=== PATIENT | female | born 2005 | race Caucasian/White ===

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

== ENCOUNTER 2023-03-06 15:14 | Inpatient (IN) | payer BC, MEDICAID, OTHER ==
[2023-03-06] MEDS ORDERED: LORazepam 0.5 MG TAB PO STA (16:23)
--- NOTE | 2023-03-06 17:08 | ED ---
General Adult HPI - General Source: patient, police, RN notes reviewed, old records reviewed Mode of arrival: ambulatory Limitations: no limitations <Mario Parra - Last Filed: 03/06/23 17:05> <Chalino Zhang - Last Filed: 03/06/23 18:29> - General Chief complaint: Psychiatric Symptoms Stated complaint: mental health Time Seen by Provider: 03/06/23 15:24 - History of Present Illness Initial comments: Patient is a 17-year-old female who presents emergency department after being petitioned for evaluation by psychiatry. He is endorsing suicidal ideations. Does have a history of a recent attempt with overdosing on Zoloft. Denies any homicidal ideations, attempts complaints. Denies any visual or auditory hallucinations. He has no other acute complaints at this time. Presents for psychiatric evaluation. States she does have the prior history of attempt. (Mraio Parra) - Related Data Home Medications Medication Instructions Recorded Confirmed Amoxicillin 500 mg PO TID 03/06/23 03/06/23 Mirtazapine [Remeron] 7.5 mg PO HS 03/06/23 03/06/23 OXcarbazepine [Trileptal] 150 mg PO TID 03/06/23 03/06/23 Allergies Allergy/AdvReac Type Severity Reaction Status Date / Time No Known Allergies Allergy Verified 03/06/23 16:09 Review of Systems ROS Other: All systems not noted in ROS Statement are negative. <Mario Parra - Last Filed: 03/06/23 17:05> ROS Other: All systems not noted in ROS Statement are negative. <Chalino Zhang - Last Filed: 03/06/23 18:29> ROS Statement: Those systems with pertinent positive or pertinent negative responses have been documented in the HPI. Review of Systems: CONST: Denies fever EYES: Denies blurry vision ENT: Denies nasal congestion C/V: Denies Chest pain RESP: Denies shortness of breath GI: Denies abdominal pain : Denies dysuria SKIN: Denies rash. MSK: Denies joint pain. NEURO: Denies headache PSYCH: Denies homicidal ideations/plans/attempts. Denies visual or auditory hallucinations. She endorses suicidal ideation. Denies attempt or plan. (Mario Parra) Past Medical History Past Medical History: No Reported History History of Any Multi-Drug Resistant Organisms: None Reported Past Surgical History: No Surgical Hx Reported Past Psychological History: No Psychological Hx Reported Smoking Status: Never smoker Past Alcohol Use History: None Reported Past Drug Use History: Marijuana <Mario Parra - Last Filed: 03/06/23 17:05> General Exam Limitations: no limitations <Mario Parra - Last Filed: 03/06/23 17:05> General appearance: alert, in no apparent distress Head exam: Present: atraumatic, normocephalic, normal inspection Eye exam: Present: normal appearance, PERRL, EOMI. Absent: scleral icterus, conjunctival injection, periorbital swelling ENT exam: Present: normal exam, mucous membranes moist Neck exam: Present: normal inspection. Absent: tenderness, meningismus, lymphadenopathy Respiratory exam: Present: normal lung sounds bilaterally. Absent: respiratory distress, wheezes, rales, rhonchi, stridor Cardiovascular Exam: Present: regular rate, normal rhythm, normal heart sounds. Absent: systolic murmur, diastolic murmur, rubs, gallop, clicks GI/Abdominal exam: Present: soft, normal bowel sounds. Absent: distended, tenderness, guarding, rebound, rigid Extremities exam: Present: normal inspection, full ROM, normal capillary refill. Absent: tenderness, pedal edema, joint swelling, calf tenderness Back exam: Present: normal inspection Neurological exam: Present: alert, oriented X3, CN II-XII intact Psychiatric exam: Present: normal affect, normal mood Skin exam: Present: warm, dry, intact, normal color. Absent: rash <Chalino Zhang - Last Filed: 03/06/23 18:29> - General Exam Comments Initial Comments: General: Appears in no acute distress. HEAD: Normal with no signs of head trauma. EYES: EOMI ENT: Hearing grossly intact, normal oropharynx. RESPIRATORY: Clear breath sounds bilaterally. No wheezes, rales, or rhonchi. C/V: Regular rate and rhythm. S1 and S2 auscultated, no edema, peripheral pulses 2+ and intact throughout ABD: Abd is soft, nontender, nondistended EXT: Normal range of motion, no obvious deformity SKIN: No rashes or lesions observed on exposed skin. NEURO: Alert and oriented 4. (Mario Parra) Course <Chalino Zhang - Last Filed: 03/06/23 18:29> Vital Signs 03/06/23 15:15 Temperature 99.5 F Pulse Rate 66 Respiratory 19 Rate Blood Pressure 135/70 O2 Sat by Pulse 100 Oximetry - Reevaluation(s) Reevaluation #1: 03/06/23 18:29 Medical record is reviewed (Chalino Zhang) Reevaluation #2: 03/06/23 18:29 Medical clear for psychiatric evaluation (Chalino Zhang) Medical Decision Making <Mario Parra - Last Filed: 03/06/23 17:05> <Chalino Zhang - Last Filed: 03/06/23 18:29> - Medical Decision Making Was pt. sent in by a medical professional or institution (, PA, DIVORCE LAWYER, urgent care, hospital, or shelter...) When possible be specific @ -No Did you speak to anyone other than the patient for history (EMS, parent, family, police, friend...)? What history was obtained from this source @ -No Did you review nursing and triage notes (agree or disagree)? Why? @ -I reviewed and agree with nursing and triage notes Were old charts reviewed (outside hosp., previous admission, EMS record, old EKG, old radiological studies, urgent care reports/EKG's, shelter records)? Report findings @ -No old charts were reviewed Differential Diagnosis (chest pain, altered mental status, abdominal pain women, abdominal pain men, vaginal bleeding, weakness, fever, dyspnea, syncope, headache, dizziness, GI bleed, back pain, seizure, CVA, palpatations, mental health, musculoskeletal)? @ -Differential Mental Health Depression, anxiety, bipolar, psychosis, schizophrenia, borderline personality, situational depression, adjustment disorder, behavioral disorder, brain tumor, malingering, substance abuse, encephalopathy, medication reaction, dementia, hypothyroidism, degenerative neurologic disorder, lupus.... This is not meant to be all-inclusive list EKG interpreted by me (3pts min.). @ -None done X-rays interpreted by me (1pt min.). @ -None done CT interpreted by me (1pt min.). @ -None done U/S interpreted by me (1pt. min.). @ -None done What testing was considered but not performed or refused? (CT, X-rays, U/S, labs )? Why? @ -None What meds were considered but not given or refused? Why? @ -None Did you discuss the management of the patient with other professionals (professionals i.e. , PA, DIVORCE LAWYER, lab, RT, psych nurse, social service worker, road manager, teacher, immigration services officer, high risk case manager)? Give summary @ -EPS notified of psychiatric consult. Was smoking cessation discussed for >3mins.? @ -No Was critical care preformed (if so, how long)? @ -No Were there social determinants of health that impacted care today? How? (Homelessness, low income, unemployed, alcoholism, drug addiction, transportation, low edu. Level, literacy, decrease access to med. care, [place] [facility], rehab)? @ -No Was there de-escalation of care discussed even if they declined (Discuss DNR or withdrawal of care, Hospice)? DNR status @ -No What co-morbidities impacted this encounter? (DM, HTN, Smoking, COPD, CAD, Cancer, CVA, ARF, Chemo, Hep., AIDS, mental health diagnosis, sleep apnea, morbid obesity)? @ -None Was patient admitted / discharged? Hospital course, mention meds given and route, prescriptions, significant lab abnormalities, going to OR and other pertinent info. @ -Based on the patient's presentation and physical exam, I'm concerned for psychiatric illness. BAT is 0. Patient placed in agreement scrubs. Sitter ordered. Suicide precautions were reviewed. UDS is pending. Patient given a dose of Ativan for anxiety. Vital signs within acceptable limits. At this time, patient is medically cleared for evaluation by psychiatry. Disposition is pending psychiatric evaluation. EPS is notified of the consult. Undiagnosed new problem with uncertain prognosis? @ -No Drug Therapy requiring intensive monitoring for toxicity (Heparin, Nitro, Insulin, Cardizem)? @ -No Were any procedures done? @ -No Diagnosis/symptom? @ -Encounter for psychiatric illness, suicidal ideation Acute, or Chronic, or Acute on Chronic? @ -Acute Uncomplicated (without systemic symptoms) or Complicated (systemic symptoms)? @ -Complicated Side effects of treatment? @ -No Exacerbation, Progression, or Severe Exacerbation? @ -No Poses a threat to life or bodily function? How? (Chest pain, USA, MS, pneumonia, PE, COPD, DKA, ARF, appy, cholecystitis, CVA, Diverticulitis, Homicidal, Suicidal, threat to staff... and all critical care pts) @ -Yes (Mario Parra) 17 female who was seen and evaluated psychiatry here in the ER. Patient be admitted for psychiatric evaluation and treatment, transferred for inpatient psychiatric (Chalino Zhang) - Lab Data Lab Results 03/06/23 Range/Units 16:57 Urine Opiates Screen Not Detected (NotDetected) Ur Oxycodone Screen Not Detected (NotDetected) Urine Methadone Screen Not Detected (NotDetected) Ur Propoxyphene Screen Not Detected (NotDetected) Ur Barbiturates Screen Not Detected (NotDetected) U Tricyclic Antidepress Not Detected (NotDetected) Ur Phencyclidine Scrn Not Detected (NotDetected) Ur Amphetamines Screen Not Detected (NotDetected) U Methamphetamines Scrn Not Detected (NotDetected) U Benzodiazepines Scrn Detected H (NotDetected) Urine Cocaine Screen Not Detected (NotDetected) U Marijuana (THC) Screen Not Detected (NotDetected) Disposition <Mario Parra - Last Filed: 03/06/23 17:05> Is patient prescribed a controlled substance at d/c from ED?: No <Chalino Zhang - Last Filed: 03/06/23 18:29> Clinical Impression: Suicidal ideation, Encounter for psychiatric assessment, Acute anxiety, Depression Disposition: TRANSFER TO PSYCH HOSP/UNIT Condition: Fair Referrals: Nikole Sena [Primary Care Provider] - 1-2 days
[2023-03-06 17:20] LABS: Amphetamine Screen,Urine Not Detected (NotDetected); Barbiturate Screen,Urine Not Detected (NotDetected); Benzodiazepines Screen,Urine Detected (NotDetected); Cocaine Screen,Urine Not Detected (NotDetected); Methadone Screen, Urine Not Detected (NotDetected); Opiate Screen,Urine Not Detected (NotDetected); Phencyclidine Screen,Urine Not Detected (NotDetected); Tricyclic Antidepressant,Urine Not Detected (NotDetected); Urn Cannabinoid Scrn Not Detected (NotDetected)
[2023-03-06 17:21] LABS: Oxycodone Screen, Urine Not Detected (NotDetected)
[2023-03-06] MEDS ORDERED: LORazepam 1 MG TAB PO PRN (22:37)
[2023-03-06] MEDS ORDERED: MAG HYDROX/AL HYDROX/SIMETH 30 ML CUP PO PRN (22:37)
[2023-03-06] MEDS ORDERED: haloperidoL 5 MG TAB PO PRN (22:37)
[2023-03-06] MEDS ORDERED: IBUPROFEN 600 MG TAB PO PRN (22:37)
[2023-03-06] MEDS ORDERED: HALOPERIDOL LACTATE 5 MG/ML 1 ML VIAL IM PRN (22:37)
[2023-03-06] MEDS ORDERED: ACETAMINOPHEN TAB 325 MG TAB PO PRN (22:37)
[2023-03-06] MEDS ORDERED: MAGNESIUM HYDROXIDE 2,400 MG/30 ML CUP PO PRN (22:37)
[2023-03-06] MEDS ORDERED: LORazepam 2 MG/ML INJ IM PRN (22:37)
[2023-03-06] MEDS: MIRTAZAPINE 15 MG TAB PO SCH (22:54)
--- NOTE | 2023-03-07 04:02 | P.CONS ---
History of Present Illness - Reason for Consult Consult date: 03/07/23 - History of Present Illness The patient is a 17-year-old female with no known PMH who had presented to the emergency room with complaints of depression and suicidal ideation. The patient had initially been petitioned by her psychiatrist for suicidal ideation. Patient was admitted to the mental health unit where she was seen and evaluated with the mental health unit RN Karissa. Patient reports that she has been going th rough a lot recently and her personal life. She denied any physical complaints at the time of interview. She denied experiencing chest discomfort, shortness of breath, fever, chills, cough, nausea, vomiting, abdominal pain, diarrhea. She denies tobacco or alcohol use. Reports recreational marijuana use. Review of systems: Pertinent positives and negatives as discussed in HPI, a complete review of systems was performed and all other systems are negative. Physical examination: General: non toxic, no distress, appears at stated age, normal weight Derm: no unusual rashes/lesions, no unusual ecchymoses, warm, dry Head: atraumatic, normocephalic, symmetric Eyes: EOMI, no lid lag, anicteric sclera ENT: Nose and ears atraumatic, no thrush, no pharyngeal erythema Neck: trachea midline, supple Mouth: no lip lesion, mucus membranes moist Cardiovascular: S1S2 reg, no murmur, no edema Lungs: CTA bilateral, no rhonchi, no rales , no accessory muscle use Abdominal: soft, nontender to palpation, no guarding Ext: no gross muscle atrophy, no contractures, Neuro: No gross focal neuro deficits noted Psych: Alert, oriented, appropriate affect Assessment: Marijuana abuse Depression and suicidal ideation Imaging: None performed Data Review: Kimble virus PCR negative with urine toxicology positive for benzodiazepines. Remaining laboratory evaluation is pending Plan: Advised on the importance of cessation of marijuana use Defer management of depression to primary psychiatry service Thank you for allowing us to participate in the care of this patient. We will follow peripherally. Do not hesitate to contact us with questions. Someone can be reached from the [facility] hospitalist group at all hours of the day at [phone]. Past Medical History Past Medical History: No Reported History History of Any Multi-Drug Resistant Organisms: None Reported Past Surgical History: No Surgical Hx Reported Past Anesthesia/Blood Transfusion Reactions: No Reported Reaction Past Psychological History: No Psychological Hx Reported Smoking Status: Never smoker Past Alcohol Use History: None Reported Past Drug Use History: Marijuana - Past Family History Mother Family Medical History: Dementia Medications and Allergies Home Medications Medication Instructions Recorded Confirmed Type Amoxicillin 500 mg PO TID 03/06/23 03/06/23 History Mirtazapine [Remeron] 7.5 mg PO HS 03/06/23 03/06/23 History OXcarbazepine [Trileptal] 150 mg PO TID 03/06/23 03/06/23 History Allergies Allergy/AdvReac Type Severity Reaction Status Date / Time No Known Allergies Allergy Verified 03/06/23 16:09 Physical Exam Vitals: Vital Signs Temp Pulse Pulse Resp BP BP Pulse Ox 03/06/23 23:12 97.9 F 76 18 131/71 96 03/06/23 21:13 69 18 108/68 95 03/06/23 15:15 99.5 F 66 19 135/70 100 Intake and Output 03/06/23 03/06/23 03/07/23 14:59 22:59 06:59 Other: Weight 52.163 kg 52.673 kg Results Labs: Abnormal Lab Results - Last 24 Hours (Table) 03/06/23 Range/Units 16:57 U Benzodiazepines Scrn Detected H (NotDetected)
[2023-03-07 07:10] VITALS: BP 103/56; PULSE 70; RESP 16; TEMP 98.7
[2023-03-07 07:28] LABS: Basophils % (A) 0 %; Eosinophils # (A) 0.1 k/uL (0-0.7); Eosinophils % (A) 3 %; HCT 38.2 % (34.0-46.0); HGB 12.3 gm/dL (11.4-16.0); Lymphocytes # (A) 2.1 k/uL (1.0-4.8); Lymphocytes % (A) 44 %; MCH 28.6 pg (25.0-35.0); MCHC 32.3 g/dL (31.0-37.0); MCV 88.6 fL (80.0-100.0); Mean Platelet Volume 8.7; Monocytes # (A) 0.3 k/uL (0-1.0); Monocytes % (A) 5 %; Neutrophils # (A) 2.2 k/uL (1.3-7.7); Neutrophils % (A) 46 %; Platelet Count 227 k/uL (150-450); RBC 4.31 m/uL (3.80-5.40); RDW 13.2 % (11.5-15.5); WBC 4.8 k/uL (4.0-11.0)
[2023-03-07 07:45] LABS: ALT 22 U/L (4-34); AST 30 U/L (14-36); African American GFR (CKD) >90 (>60 ml/min/1.73 sqM); Albumin 3.6 g/dL (3.5-5.0); Alkaline Phosphatase 64 U/L (38-126); Anion Gap 6 mmol/L; Blood Urea Nitrogen 12 mg/dL (7-17); Calcium 8.9 mg/dL (8.4-10.2); Carbon Dioxide 23 mmol/L (22-30); Chloride 109 mmol/L (98-107); Glucose 83 mg/dL (74-99); Non-African American GFR(CKD) >90 (>60 ml/min/1.73 sqM); Potassium 4.1 mmol/L (3.5-5.1); Sodium 138 mmol/L (137-145); Total Bilirubin 0.3 mg/dL (0.2-1.3); Total Protein 6.2 g/dL (6.3-8.2)
[2023-03-07] MEDS: AMOXICILLIN 500 MG CAP PO SCH ×3 (08:20→21:04)
[2023-03-07] MEDS ORDERED: OXcarbazepine 150 MG TAB PO SCH (09:00)
[2023-03-07 09:28] LABS: Appearance,Urine Clear (Clear); Bilirubin,Urine Negative (Negative); Blood,Urine Negative (Negative); Color,Urine Light Yellow; Glucose,Urine (UA) Negative (Negative); Ketones,Urine Negative (Negative); Leukocyte Esterase,Urine Negative (Negative); Nitrite,Urine Negative (Negative); PH, Urine 5.5 (5.0-8.0); Protein,Urine Negative (Negative); Specific Gravity,Urine 1.009 (1.001-1.035); Urobilinogen,Urine <2.0 mg/dL (<2.0)
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
[2023-03-07 18:11] LABS: Chol/HDL Ratio 2.47 Ratio
[2023-03-07 18:15] LABS: LDL Cholesterol,Calculated 65.8 mg/dL (0.0-131.0); VLDL Calculation 19.22 mg/dL (5.00-40.00)
[2023-03-07] MEDS: OXcarbazepine 150 MG TAB PO SCH (21:03)
[2023-03-07] MEDS: MIRTAZAPINE 15 MG TAB PO SCH (21:03)
[2023-03-08] MEDS: OXcarbazepine 150 MG TAB PO SCH (07:50)
[2023-03-08] MEDS: AMOXICILLIN 500 MG CAP PO SCH (07:50)
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
== END 2023-03-08 13:53 | disposition home or self-care (01) | DRG 753 ==
LOC: EC 15:14 → 3MHU 22:00
PROVIDERS: ADMIT Psychiatry & Neurology Psychiatry; ATTEND Psychiatry & Neurology Psychiatry
DX: F31.81 Bipolar II disorder (principal); F12.10 Cannabis abuse, uncomplicated; F43.10 Post-traumatic stress disorder, unspecified; G47.00 Insomnia, unspecified; T43.222A Poisoning by selective serotonin reuptake inhibitors, intentional self-harm, initial encounter; Z79.899 Other long term (current) drug therapy; Z91.410 Personal history of adult physical and sexual abuse; Z71.89 Other specified counseling; Z20.822 Contact with and (suspected) exposure to COVID-19; Z28.310 Unvaccinated for COVID-19; Z28.21 Immunization not carried out because of patient refusal
CPT/HCPCS: 80053; 80061; 80306; 81003; 81025; 82075; 83036; 84443; 85025; 87635; 99285

== ENCOUNTER → 2023-04-14 | Outpatient (CLI) | payer OTHER ==
[2023-04-14 15:39] LABS: Basophils # (A) 0.05 X 10*3/uL (0.00-0.10); Basophils % (A) 1.1 %; Eosinophils # (A) 0.12 X 10*3/uL (0.04-0.35); Eosinophils % (A) 2.7 %; HCT 44.1 % (37.2-46.3); Lymphocytes # (A) 1.68 X 10*3/uL (0.90-5.00); Lymphocytes % (A) 37.3 %; MCHC 31.7 d/dL (32.0-37.0); MCV 91.5 FL (80.0-97.0); Mean Platelet Volume 10.2 FL (9.5-12.2); Monocytes # (A) 0.34 X 10*3/uL (0.20-1.00); Monocytes % (A) 7.5 %; NRBC Per 100 WBC 0 X 10*3/uL (0.00-0.01); Neutrophils # (A) 2.31 X 10*3/uL (1.80-7.70); Neutrophils % (A) 51.2 %; Platelet Count 248 X 10*3/uL (140-440); RBC 4.82 X 10*6/uL (4.10-5.20); RDW 13.1 % (11.5-14.5); WBC 4.51 X 10*3/uL (4.50-10.00)
[2023-04-14 15:53] LABS: ALT 11 U/L (8-44); AST 25 U/L (13-35); Alkaline Phosphatase 95 U/L (41-126); Blood Urea Nitrogen 13.3 mg/dL (9.0-27.0); Carbon Dioxide 25.3 mmol/L (21.6-31.8); Chloride 106 mmol/L (96-109); Globulin 2.5 d/dL (1.6-3.3); Glucose 74 mg/dL (70-110); Potassium 4.5 mmol/L (3.5-5.5); Sodium 142 mmol/L (135-145); Total Bilirubin <0.2 mg/dL (0.3-1.2); Total Protein 7.5 d/dL (6.2-8.2)
== END | disposition home or self-care (01) ==
LOC: LABWHC1 08:56
PROVIDERS: ATTEND Registered Nurse
DX: Z51.81 Encounter for therapeutic drug level monitoring (principal); Z79.899 Other long term (current) drug therapy
CPT/HCPCS: 36415; 80053; 80183; 85025

== ENCOUNTER 2023-04-25 17:14 | Emergency (ER) | payer OTHER ==
[2023-04-25] MEDS ORDERED: ONDANSETRON ODT 4 MG TAB PO STA (18:08)
--- NOTE | 2023-04-25 18:14 | ED ---
General Adult HPI - General Chief complaint: Psychiatric Symptoms Stated complaint: mental health Time Seen by Provider: 04/25/23 17:34 Source: patient Mode of arrival: ambulatory Limitations: no limitations - History of Present Illness Initial comments: This is a 17-year-old female with a past medical history including bipolar disorder presents emergency department for suicidal ideation. The patient stated that she was having suicidal thoughts over the last 2 weeks but have worsened. The patient did talk to [facility] and they did recommend for her to come to the emergency department for evaluation. The patient stated that she had a plan to take all of her pills which is similar to the previous suicidal attempt and she had in January. The patient was otherwise resting in bed comfortably. The patient denied any homicidal ideation and denied any auditory or visual hallucinations. - Related Data Home Medications Medication Instructions Recorded Confirmed Etonogestrel [Nexplanon] 68 mg SQ [id number] 04/25/23 04/25/23 Mirtazapine [Remeron] 15 mg PO HS 04/25/23 04/25/23 Previous Rx's Medication Instructions Recorded OXcarbazepine [Trileptal] 450 mg PO BID 7 Days #42 tab 03/08/23 Allergies Allergy/AdvReac Type Severity Reaction Status Date / Time No Known Allergies Allergy Verified 04/25/23 22:06 Review of Systems ROS Statement: Those systems with pertinent positive or pertinent negative responses have been documented in the HPI. ROS Other: All systems not noted in ROS Statement are negative. Past Medical History Past Medical History: No Reported History History of Any Multi-Drug Resistant Organisms: None Reported Past Surgical History: No Surgical Hx Reported Past Anesthesia/Blood Transfusion Reactions: No Reported Reaction Past Psychological History: No Psychological Hx Reported Smoking Status: Never smoker Past Alcohol Use History: None Reported Past Drug Use History: Marijuana - Past Family History Mother Family Medical History: Dementia General Exam Limitations: no limitations General appearance: alert, in no apparent distress Head exam: Present: atraumatic, normocephalic, normal inspection Eye exam: Present: normal appearance, PERRL Pupils: Present: normal accommodation ENT exam: Present: normal exam, normal oropharynx, mucous membranes moist Neck exam: Present: normal inspection, full ROM Respiratory exam: Present: normal lung sounds bilaterally Cardiovascular Exam: Present: regular rate, normal rhythm, normal heart sounds GI/Abdominal exam: Present: soft, normal bowel sounds Extremities exam: Present: normal inspection, full ROM Back exam: Present: normal inspection, full ROM Neurological exam: Present: alert, oriented X3, CN II-XII intact Psychiatric exam: Present: suicidal ideation Skin exam: Present: warm, dry Course Vital Signs 04/25/23 04/25/23 04/26/23 17:16 21:26 07:39 Temperature 98.3 F 99.0 F Pulse Rate 98 66 100 Respiratory 20 14 20 Rate Blood Pressure 132/90 112/73 108/71 O2 Sat by Pulse 96 99 97 Oximetry 04/26/23 09:31 Temperature 98.5 F Pulse Rate 100 Respiratory 16 Rate Blood Pressure 106/60 O2 Sat by Pulse 97 Oximetry Medical Decision Making - Medical Decision Making Was pt. sent in by a medical professional or institution (GARY Mai, HAND HARDENER, urgent care, hospital, or [facility]...) When possible be specific @ -No Did you speak to anyone other than the patient for history (EMS, parent, family, police, friend...)? What history was obtained from this source @ -No Did you review nursing and triage notes (agree or disagree)? Why? @ -I reviewed and agree with nursing and triage notes Were old charts reviewed (outside hosp., previous admission, EMS record, old E KG, old radiological studies, urgent care reports/EKG's, [facility] records)? Report findings @ -No old charts were reviewed Differential Diagnosis (chest pain, altered mental status, abdominal pain women, abdominal pain men, vaginal bleeding, weakness, fever, dyspnea, syncope, headache, dizziness, GI bleed, back pain, seizure, CVA, palpatations, mental hea lth)? @ -Suicidal ideation, homicide ideation, bipolar EKG interpreted by me (3pts min.). @ -None X-rays interpreted by me (1pt min.). @ -None done CT interpreted by me (1pt min.). @ -None done U/S interpreted by me (1pt. min.). @ -None done What testing was considered but not performed or refused? (CT, X-rays, U/S, labs)? Why? @ -None What meds were considered but not given or refused? Why? @ -None Did you discuss the management of the patient with other professionals (professionals i.e. Dr., PA, HAND HARDENER, lab, RT, psych nurse, social work professor, float operator, teacher, public information officer, medical case worker)? Give summary @ -Yes, EPS was contacted regarding the patient. Was smoking cessation discussed for >3mins.? @ -No Was critical care preformed (if so, how long)? @ -No Were there social determinants of health that impacted care today? How? (Homelessness, low income, unemployed, alcoholism, drug addiction, transportation, low edu. Level, literacy, decrease access to med. care, half-way, rehab)? @ -No Was there de-escalation of care discussed even if they declined (Discuss DNR or withdrawal of care, Hospice)? DNR status @ -No What co-morbidities impacted this encounter? (DM, HTN, Smoking, COPD, CAD, Cancer, CVA, ARF, Chemo, Hep., AIDS, mental health diagnosis, sleep apnea, morbid obesity)? @ -Bipolar disorder, previous suicidal attempt Was patient admitted / discharged? Hospital course, mention meds given and route, prescriptions, significant lab abnormalities, going to OR and other pertinent info. @ -The patient was seen and evaluated emergency department. On evaluation, the patient was resting in bed comfortably with normal vital signs. The patient was medically cleared as the patient's alcohol was 0. The patient was seen and evaluated by EPS at the bedside. EPS did recommend inpatient psychiatric admission however there were no beds available currently to the patient will n eed to be transferred. The patient will be transferred to another psychiatric facility once a bed is completed. The patient understanding of this plan and remain stable. The patient will be closely monitored observed emergency department pending bed placement. Undiagnosed new problem with uncertain prognosis? @ -No Drug Therapy requiring intensive monitoring for toxicity (Heparin, Nitro, Insulin, Cardizem)? @ -No Were any procedures done? @ -No Diagnosis/symptom? @ -Suicidal ideation with a plan Acute, or Chronic, or Acute on Chronic? @ -Acute on chronic Uncomplicated (without systemic symptoms) or Complicated (systemic symptoms)? @ -Complicated Side effects of treatment? @ -No Exacerbation, Progression, or Severe Exacerbation? @ -No Poses a threat to life or bodily function? How? (Chest pain, [place], [place], pneumonia, PE, COPD, DKA, ARF, appy, cholecystitis, CVA, Diverticulitis, Homicidal, Suicidal, threat to staff... and all critical care pts) @ -Yes, continued ideation with a plan can lead to suicide attempt and possible . *Update - Patient was transferred to [facility] under a different physician at 04/26/23 at 0845. - Lab Data Result diagrams: 04/25/23 18:50 04/25/23 18:50 Lab Results 04/25/23 04/25/23 04/25/23 Range/Units 18:50 18:50 18:50 WBC 6.2 (4.0-11.0) k/uL RBC 4.82 (3.80-5.40) m/uL Hgb 14.2 (11.4-16.0) gm/dL Hct 42.5 (34.0-46.0) % MCV 88.2 (80.0-100.0) fL MCH 29.5 (25.0-35.0) pg MCHC 33.4 (31.0-37.0) g/dL RDW 13.3 (11.5-15.5) % Plt Count 262 (150-450) k/uL MPV 8.0 Neutrophils % 57 % Lymphocytes % 31 % Monocytes % 5 % Eosinophils % 4 % Basophils % 1 % Neutrophils # 3.5 (1.3-7.7) k/uL Lymphocytes # 1.9 (1.0-4.8) k/uL Monocytes # 0.3 (0-1.0) k/uL Eosinophils # 0.2 (0-0.7) k/uL Basophils # 0.0 (0-0.2) k/uL Sodium (137-145) mmol/L Potassium (3.5-5.1) mmol/L Chloride (98-107) mmol/L Carbon Dioxide (22-30) mmol/L Anion Gap mmol/L BUN (7-17) mg/dL Creatinine (0.52-1.04) mg/dL Est GFR (CKD-EPI)AfAm (>60 ml/min/1.73 sqM) Est GFR (CKD-EPI)NonAf (>60 ml/min/1.73 sqM) Glucose (74-99) mg/dL Calcium (8.4-10.2) mg/dL Total Bilirubin (0.2-1.3) mg/dL AST (14-36) U/L ALT (4-34) U/L Alkaline Phosphatase (38-126) U/L Total Protein (6.3-8.2) g/dL Albumin (3.5-5.0) g/dL Urine Color Colorless Urine Appearance Clear (Clear) Urine pH 6.5 (5.0-8.0) Ur Specific [place] 1.013 (1.001-1.035) Urine Protein Negative (Negative) Urine Glucose (UA) Negative (Negative) Urine Ketones Negative (Negative) Urine Blood Trace H (Negative) Urine Nitrite Negative (Negative) Urine Bilirubin Negative (Negative) Urine Urobilinogen <2.0 (<2.0) mg/dL Ur Leukocyte Esterase Negative (Negative) Urine RBC 1 (0-5) /hpf Urine WBC 1 (0-5) /hpf Ur Squamous Epith Cells 1 (0-4) /hpf Urine Bacteria Occasional H (None) /hpf Urine Mucus Rare H (None) /hpf Urine HCG, Qual Not Detected (Not Detectd) Urine Opiates Screen Not Detected (NotDetected) Ur Oxycodone Screen Not Detected (NotDetected) Urine Methadone Screen Not Detected (NotDetected) Ur Propoxyphene Screen Not Detected (NotDetected) Ur Barbiturates Screen Not Detected (NotDetected) U Tricyclic Antidepress Not Detected (NotDetected) Ur Phencyclidine Scrn Not Detected (NotDetected) Ur Amphetamines Screen Not Detected (NotDetected) U Methamphetamines Scrn Not Detected (NotDetected) U Benzodiazepines Scrn Not Detected (NotDetected) Urine Cocaine Screen Not Detected (NotDetected) U Marijuana (THC) Screen Not Detected (NotDetected) Coronavirus (PCR) (Not Detectd) 04/25/23 04/25/23 Range/Units 18:50 18:50 WBC (4.0-11.0) k/uL RBC (3.80-5.40) m/uL Hgb (11.4-16.0) gm/dL Hct (34.0-46.0) % MCV (80.0-100.0) fL MCH (25.0-35.0) pg MCHC (31.0-37.0) g/dL RDW (11.5-15.5) % Plt Count (150-450) k/uL MPV Neutrophils % % Lymphocytes % % Monocytes % % Eosinophils % % Basophils % % Neutrophils # (1.3-7.7) k/uL Lymphocytes # (1.0-4.8) k/uL Monocytes # (0-1.0) k/uL Eosinophils # (0-0.7) k/uL Basophils # (0-0.2) k/uL Sodium 139 (137-145) mmol/L Potassium 3.8 (3.5-5.1) mmol/L Chloride 107 (98-107) mmol/L Carbon Dioxide 25 (22-30) mmol/L Anion Gap 7 mmol/L BUN 8 (7-17) mg/dL Creatinine 0.70 (0.52-1.04) mg/dL Est GFR (CKD-EPI)AfAm >90 (>60 ml/min/1.73 sqM) Est GFR (CKD-EPI)NonAf >90 (>60 ml/min/1.73 sqM) Glucose 81 (74-99) mg/dL Calcium 9.4 (8.4-10.2) mg/dL Total Bilirubin 0.4 (0.2-1.3) mg/dL AST 41 H (14-36) U/L ALT 26 (4-34) U/L Alkaline Phosphatase 84 (38-126) U/L Total Protein 7.3 (6.3-8.2) g/dL Albumin 4.4 (3.5-5.0) g/dL Urine Color Urine Appearance (Clear) Urine pH (5.0-8.0) Ur Specific [place] (1.001-1.035) Urine Protein (Negative) Urine Glucose (UA) (Negative) Urine Ketones (Negative) Urine Blood (Negative) Urine Nitrite (Negative) Urine Bilirubin (Negative) Urine Urobilinogen (<2.0) mg/dL Ur Leukocyte Esterase (Negative) Urine RBC (0-5) /hpf Urine WBC (0-5) /hpf Ur Squamous Epith Cells (0-4) /hpf Urine Bacteria (None) /hpf Urine Mucus (None) /hpf Urine HCG, Qual (Not Detectd) Urine Opiates Screen (NotDetected) Ur Oxycodone Screen (NotDetected) Urine Methadone Screen (NotDetected) Ur Propoxyphene Screen (NotDetected) Ur Barbiturates Screen (NotDetected) U Tricyclic Antidepress (NotDetected) Ur Phencyclidine Scrn (NotDetected) Ur Amphetamines Screen (NotDetected) U Methamphetamines Scrn (NotDetected) U Benzodiazepines Scrn (NotDetected) Urine Cocaine Screen (NotDetected) U Marijuana (THC) Screen (NotDetected) Coronavirus (PCR) Not Detected (Not Detectd) Disposition Clinical Impression: Suicidal ideation Disposition: TRANSFER TO PSYCH HOSP/UNIT Condition: Stable Is patient prescribed a controlled substance at d/c from ED?: No Referrals: Nikole Sena [Primary Care Provider] - 1-2 days Time of Disposition: 18:45 - Out of Hospital Transfer - Req. Specs Out of Hospital Transfer - Requested Specifics: Psychiatric Non-ICU ([facility]
[2023-04-25 18:59] LABS: Basophils % (A) 1 %; Eosinophils # (A) 0.2 k/uL (0-0.7); Eosinophils % (A) 4 %; HCT 42.5 % (34.0-46.0); HGB 14.2 gm/dL (11.4-16.0); Lymphocytes # (A) 1.9 k/uL (1.0-4.8); Lymphocytes % (A) 31 %; MCH 29.5 pg (25.0-35.0); MCHC 33.4 g/dL (31.0-37.0); MCV 88.2 fL (80.0-100.0); Monocytes # (A) 0.3 k/uL (0-1.0); Monocytes % (A) 5 %; Neutrophils # (A) 3.5 k/uL (1.3-7.7); Neutrophils % (A) 57 %; Platelet Count 262 k/uL (150-450); RBC 4.82 m/uL (3.80-5.40); RDW 13.3 % (11.5-15.5); WBC 6.2 k/uL (4.0-11.0)
[2023-04-25 19:09] LABS: ALT 26 U/L (4-34); AST 41 U/L (14-36); African American GFR (CKD) >90 (>60 ml/min/1.73 sqM); Albumin 4.4 g/dL (3.5-5.0); Alkaline Phosphatase 84 U/L (38-126); Anion Gap 7 mmol/L; Blood Urea Nitrogen 8 mg/dL (7-17); Calcium 9.4 mg/dL (8.4-10.2); Carbon Dioxide 25 mmol/L (22-30); Chloride 107 mmol/L (98-107); Glucose 81 mg/dL (74-99); Non-African American GFR(CKD) >90 (>60 ml/min/1.73 sqM); Potassium 3.8 mmol/L (3.5-5.1); Sodium 139 mmol/L (137-145); Total Bilirubin 0.4 mg/dL (0.2-1.3); Total Protein 7.3 g/dL (6.3-8.2)
[2023-04-25 19:16] LABS: Appearance,Urine Clear (Clear); Bacteria,Urine Occasional /hpf; Bilirubin,Urine Negative (Negative); Blood,Urine Trace (Negative); Color,Urine Colorless; Glucose,Urine (UA) Negative (Negative); Ketones,Urine Negative (Negative); Leukocyte Esterase,Urine Negative (Negative); Mucus,Urine Rare /hpf; Nitrite,Urine Negative (Negative); PH, Urine 6.5 (5.0-8.0); Protein,Urine Negative (Negative); RBC,Urine 1 /hpf (0-5); Specific Gravity,Urine 1.013 (1.001-1.035); Squamous Epithelial Cell,Urine 1 /hpf (0-4); Urobilinogen,Urine <2.0 mg/dL (<2.0); WBC,Urine 1 /hpf (0-5)
[2023-04-25 19:19] LABS: Amphetamine Screen,Urine Not Detected (NotDetected); Barbiturate Screen,Urine Not Detected (NotDetected); Benzodiazepines Screen,Urine Not Detected (NotDetected); Cocaine Screen,Urine Not Detected (NotDetected); Methadone Screen, Urine Not Detected (NotDetected); Opiate Screen,Urine Not Detected (NotDetected); Oxycodone Screen, Urine Not Detected (NotDetected); Phencyclidine Screen,Urine Not Detected (NotDetected); Tricyclic Antidepressant,Urine Not Detected (NotDetected); Urn Cannabinoid Scrn Not Detected (NotDetected)
[2023-04-26 07:41] VITALS: PULSE 100
[2023-04-26 09:33] VITALS: BP 106/60; RESP 16; TEMP 98.5
== END 2023-04-26 09:32 ==
LOC: EC 17:14
DX: R45.851 Suicidal ideations (principal); F12.90 Cannabis use, unspecified, uncomplicated; Z20.822 Contact with and (suspected) exposure to COVID-19
CPT/HCPCS: 36415; 80053; 80306; 81001; 81025; 82075; 85025; 87635; 99285

== ENCOUNTER 2023-07-25 20:45 | Emergency (ER) | payer OTHER ==
--- NOTE | 2023-07-25 22:05 | ED ---
Psych HPI - General Source: patient, RN notes reviewed, old records reviewed Mode of arrival: ambulatory Limitations: no limitations - History of Present Illness MD Complaint: suicidal ideation, feels depressed -: days(s) Associated Psychiatric Symptoms: depression History of same: Yes Quality: constant Improves With: none Associated Symptoms: denies other symptoms Treatments Prior to Arrival: placed on mental health hold If Self Harm: admits thoughts of self harm <Chalino Zhang - Last Filed: 07/25/23 22:58> <Cinthia Tyson - Last Filed: 07/26/23 15:50> - General Chief Complaint: Psychiatric Symptoms Stated Complaint: Mental health Time Seen by Provider: 07/25/23 21:27 - History of Present Illness Initial Comments: This is a 18-year-old female to the emergency department for evaluation of mental health patient is having increasing anxiety and depression since stopped taking her medications. Patient stopped taking her medications due to increased or worsening side effects (Chalino Zhang) - Related Data Home Medications Medication Instructions Recorded Confirmed Etonogestrel [Nexplanon] 68 mg SQ [id number] 04/25/23 07/25/23 ARIPiprazole [Abilify] 5 mg PO HS 07/25/23 07/25/23 traZODone HCL [Desyrel] 50 mg PO HS PRN 07/25/23 07/25/23 Previous Rx's Medication Instructions Recorded OXcarbazepine [Trileptal] 450 mg PO BID 7 Days #42 tab 03/08/23 Allergies Allergy/AdvReac Type Severity Reaction Status Date / Time No Known Allergies Allergy Verified 07/25/23 22:31 Review of Systems ROS Other: All systems not noted in ROS Statement are negative. <Chalino Zhang - Last Filed: 07/25/23 22:58> ROS Other: All systems not noted in ROS Statement are negative. <Cinthia Tyson - Last Filed: 07/26/23 15:50> ROS Statement: Those systems with pertinent positive or pertinent negative responses have been documented in the HPI. Past Medical History Past Medical History: No Reported History History of Any Multi-Drug Resistant Organisms: None Reported Past Surgical History: No Surgical Hx Reported Past Anesthesia/Blood Transfusion Reactions: No Reported Reaction Past Psychological History: No Psychological Hx Reported Smoking Status: Never smoker Past Alcohol Use History: None Reported Past Drug Use History: Marijuana - Past Family History Mother Family Medical History: Dementia <Chalino Zhang - Last Filed: 07/25/23 22:58> General Exam Limitations: no limitations General appearance: alert, in no apparent distress Head exam: Present: atraumatic, normocephalic, normal inspection Eye exam: Present: normal appearance, PERRL, EOMI. Absent: scleral icterus, conjunctival injection, periorbital swelling ENT exam: Present: normal exam, mucous membranes moist Neck exam: Present: normal inspection. Absent: tenderness, meningismus, lymphadenopathy Respiratory exam: Present: normal lung sounds bilaterally. Absent: respiratory distress, wheezes, rales, rhonchi, stridor Cardiovascular Exam: Present: regular rate, normal rhythm, normal heart sounds. Absent: systolic murmur, diastolic murmur, rubs, gallop, clicks GI/Abdominal exam: Present: soft, normal bowel sounds. Absent: distended, tenderness, guarding, rebound, rigid Extremities exam: Present: normal inspection, full ROM, normal capillary refill. Absent: tenderness, pedal edema, joint swelling, calf tenderness Back exam: Present: normal inspection Neurological exam: Present: alert, oriented X3, CN II-XII intact Psychiatric exam: Present: normal affect, normal mood Skin exam: Present: warm, dry, intact, normal color. Absent: rash <Chalino Zhang - Last Filed: 07/25/23 22:58> Course <Chalino Zhang - Last Filed: 07/25/23 22:58> Vital Signs 07/25/23 07/26/23 07/26/23 20:59 06:03 14:00 Temperature 99.0 F 98.2 F 98.4 F Pulse Rate 78 91 88 Respiratory 17 17 18 Rate Blood Pressure 113/74 96/58 100/61 O2 Sat by Pulse 100 97 96 Oximetry - Reevaluation(s) Reevaluation #1: 07/25/23 22:58 Medical records reviewed (Chalino Zhang) Reevaluation #2: 07/25/23 22:58 Medical clear for psychiatric evaluation (Chalino Zhang) Disposition <Chalino Zhang - Last Filed: 07/25/23 22:58> Is patient prescribed a controlled substance at d/c from ED?: No Time of Disposition: 15:50 <Cinthia Tyson - Last Filed: 07/26/23 15:50> Clinical Impression: Depression Disposition: HOME SELF-CARE Condition: Stable Instructions (If sedation given, give patient instructions): Depression (ED) Referrals: Nikole Sena [Primary Care Provider] - 1-2 days
[2023-07-26 14:18] VITALS: RESP 18; TEMP 98.4
[2023-07-26 15:53] LABS: Amphetamine Screen,Urine Not Detected (NotDetected); Barbiturate Screen,Urine Not Detected (NotDetected); Benzodiazepines Screen,Urine Not Detected (NotDetected); Cocaine Screen,Urine Not Detected (NotDetected); Methadone Screen, Urine Not Detected (NotDetected); Opiate Screen,Urine Not Detected (NotDetected); Oxycodone Screen, Urine Not Detected (NotDetected); Phencyclidine Screen,Urine Not Detected (NotDetected); Tricyclic Antidepressant,Urine Not Detected (NotDetected); Urn Cannabinoid Scrn Not Detected (NotDetected)
[2023-07-26 16:15] VITALS: BP 111/61; PULSE 82
== END 2023-07-26 16:07 | disposition home or self-care (01) ==
LOC: EC 20:45
DX: F32.A Depression, unspecified (principal); F12.90 Cannabis use, unspecified, uncomplicated
CPT/HCPCS: 80306; 82075; 99285

== ENCOUNTER 2024-04-17 11:19 | Emergency (ER) | payer OTHER ==
[2024-04-17 11:31] VITALS: BP 115/65; PULSE 78; RESP 16; TEMP 98.1
--- NOTE | 2024-04-17 12:29 | ED ---
Recheck HPI - General Chief Complaint: Recheck/Abnormal Lab/Rx Stated Complaint: Withdrawal Time Seen by Provider: 04/17/24 12:28 Source: patient, RN notes reviewed Mode of arrival: ambulatory Limitations: no limitations - History of Present Illness Initial Comments: 18-year-old female presented to ER for medication refill. Patient is prescribed Effexor ER 150 mg and risperidone at 1 mg for depression. She states she has been out of her medications for approximately 3 days. She has been unable to follow-up with PCP due to insurance issues. She also reports she has not been able to follow-up with [facility]. Patient denies any suicide ideation, plan or homicidal ideation. Patient denies any other acute complaints at this time. - Related Data Home Medications Medication Instructions Recorded Confirmed Etonogestrel [Nexplanon] 68 mg SQ [id number] 04/25/23 07/25/23 ARIPiprazole [Abilify] 5 mg PO HS 07/25/23 07/25/23 traZODone HCL [Desyrel] 50 mg PO HS PRN 07/25/23 07/25/23 Previous Rx's Medication Instructions Recorded OXcarbazepine [Trileptal] 450 mg PO BID 7 Days #42 tab 03/08/23 Venlafaxine HCl ER [Effexor Xr] 150 mg PO DAILY #30 cap 04/17/24 risperiDONE 1 mg PO DAILY #30 tablet 04/17/24 Allergies Allergy/AdvReac Type Severity Reaction Status Date / Time No Known Allergies Allergy Verified 04/17/24 11:31 Review of Systems ROS Statement: Those systems with pertinent positive or pertinent negative responses have been documented in the HPI. ROS Other: All systems not noted in ROS Statement are negative. Past Medical History Past Medical History: No Reported History History of Any Multi-Drug Resistant Organisms: None Reported Past Surgical History: No Surgical Hx Reported Past Anesthesia/Blood Transfusion Reactions: No Reported Reaction Past Psychological History: Anxiety, Depression Smoking Status: Never smoker Past Alcohol Use History: None Reported Past Drug Use History: Marijuana - Past Family History Mother Family Medical History: Dementia General Exam Limitations: no limitations General appearance: alert, in no apparent distress Respiratory exam: Present: normal lung sounds bilaterally. Absent: respiratory distress, wheezes, rales, rhonchi, stridor Cardiovascular Exam: Present: regular rate, normal rhythm, normal heart sounds. Absent: systolic murmur, diastolic murmur, rubs, gallop, clicks GI/Abdominal exam: Present: soft, normal bowel sounds. Absent: distended, tenderness, guarding, rebound, rigid Neurological exam: Present: alert, oriented X3, CN II-XII intact Psychiatric exam: Present: normal affect, normal mood Skin exam: Present: warm, dry, intact, normal color. Absent: rash Course Vital Signs 04/17/24 11:29 Temperature 98.1 F Pulse Rate 78 Respiratory 16 Rate Blood Pressure 115/65 O2 Sat by Pulse 98 Oximetry Medical Decision Making - Medical Decision Making Was pt. sent in by a medical professional or institution (, PA, BLASTING CLAY MINER, urgent care, hospital, or prison...) When possible be specific @ -No Did you speak to anyone other than the patient for history (EMS, parent, family, police, friend...)? What history was obtained from this source @ -No Did you review nursing and triage notes (agree or disagree)? Why? @ -I reviewed and agree with nursing and triage notes Were old charts reviewed (outside hosp., previous admission, EMS record, old EKG, old radiological studies, urgent care reports/EKG's, prison records)? Report findings @ -No old charts were reviewed Differential Diagnosis (chest pain, altered mental status, abdominal pain women, abdominal pain men, vaginal bleeding, weakness, fever, dyspnea, syncope, headache, dizziness, GI bleed, back pain, seizure, CVA, palpatations, mental health, musculoskeletal)? @ -Differential Mental Health: Depression, anxiety, bipolar, psychosis, schizophrenia, borderline personality, situational depression, adjustment disorder, behavioral disorder, brain tumor, malingering, substance abuse, encephalopathy, medication reaction, dementia, hypothyroidism, degenerative neurologic disorder, lupus.... This is not meant to be all-inclusive list EKG interpreted by me (3pts min.). @ -None X-rays interpreted by me (1pt min.). @ -None done CT interpreted by me (1pt min.). @ -None done U/S interpreted by me (1pt. min.). @ -None done What testing was considered but not performed or refused? (CT, X-rays, U/S, labs)? Why? @ -None What meds were considered but not given or refused? Why? @ -None Did you discuss the management of the patient with other professionals (professionals i.e. , PA, BLASTING CLAY MINER, lab, RT, psych nurse, social worker health services, impression printer, teacher, community service patrol officer, case managers)? Give summary @ -I discussed this case with pharmacy to confirm medication dosing Was smoking cessation discussed for >3mins.? @ -No Was critical care preformed (if so, how long)? @ -No Were there social determinants of health that impacted care today? How? (Homelessness, low income, unemployed, alcoholism, drug addiction, transportation, low edu. Level, literacy, decrease access to med. care, residential, rehab)? @ -No Was there de-escalation of care discussed even if they declined (Discuss DNR or withdrawal of care, Hospice)? DNR status @ -No What co-morbidities impacted this encounter? (DM, HTN, Smoking, COPD, CAD, Cancer, CVA, ARF, Chemo, Hep., AIDS, mental health diagnosis, sleep apnea, morbid obesity)? @ -None Was patient admitted / discharged? Hospital course, mention meds given and route, prescriptions, significant lab abnormalities, going to OR and other pertinent info. @ - Discharged. 18-year-old female presented to ER for medication refill. History and physical exam completed. Vitals stable. Patient no signs of acute distress and nontoxic-appearing. Exam unremarkable. Patient denying suicidal or homicidal ideation. Effexor and risperidone prescribed. Advise close follow-up with [facility] and PCP. Return parametes discussed. Patient discharged stable condition. Patient verbally expressed understanding agree with care plan. Case discussed with ED attending, Dr. Tyson. Undiagnosed new problem with uncertain prognosis? @ -No Drug Therapy requiring intensive monitoring for toxicity (Heparin, Nitro, Insulin, Cardizem)? @ -No Were any procedures done? @ -No Diagnosis/symptom? @ -Medication refill Acute, or Chronic, or Acute on Chronic? @ -Acute Uncomplicated (without systemic symptoms) or Complicated (systemic symptoms)? @ -Uncomplicated Side effects of treatment? @ -No Exacerbation, Progression, or Severe Exacerbation? @ -No Poses a threat to life or bodily function? How? (Chest pain, USA, [place], pneumonia, PE, COPD, DKA, ARF, appy, cholecystitis, CVA, Diverticulitis, Homicidal, Suicidal, threat to staff... and all critical care pts) @ -No Disposition Clinical Impression: Encounter for medication refill Disposition: HOME SELF-CARE Condition: Stable Additional Instructions: Follow-up with PCP and [facility] in the next week. Return to the ER for any new or worsening symptoms. Prescriptions: Venlafaxine HCl ER [Effexor Xr] 150 mg PO DAILY #30 cap risperiDONE 1 mg PO DAILY #30 tablet Is patient prescribed a controlled substance at d/c from ED?: No Referrals: Nikole Sena [Primary Care Provider] - 1-2 days Time of Disposition: 12:29
== END 2024-04-17 12:37 | disposition home or self-care (01) ==
LOC: EC 11:19
DX: Z76.0 Encounter for issue of repeat prescription (principal)
CPT/HCPCS: 99283

== ENCOUNTER 2024-12-13 15:27 | Emergency (ER) | payer OTHER ==
[2024-12-13 15:31] VITALS: TEMP 98.7
[2024-12-13] MEDS: SODIUM CHLORIDE 0.9% 1,000 ML IV STA (17:04)
[2024-12-13 17:09] LABS: Basophils # (A) 0.05 10*3/uL (0.00-0.10); Basophils % (A) 0.7 %; Eosinophils # (A) 0.12 10*3/uL (0.04-0.35); Eosinophils % (A) 1.7 %; HCT 43.8 % (37.2-46.3); HGB 14.5 g/dL (12.0-15.0); Lymphocytes % (A) 34.6 %; MCH 28.8 pg (27.0-32.0); MCHC 33.1 g/dL (32.0-37.0); MCV 86.9 fL (80.0-97.0); Mean Platelet Volume 9.6 fL (9.5-12.2); Monocytes # (A) 0.44 10*3/uL (0.20-1.00); Monocytes % (A) 6.3 %; Neutrophils # (A) 3.89 10*3/uL (1.80-7.70); Neutrophils % (A) 56.3 %; Platelet Count 298 10*3/uL (140-440); RBC 5.04 10*6/uL (4.10-5.20); RDW 13.7 % (11.5-14.5); WBC 6.93 10*3/uL (4.50-10.00)
[2024-12-13 17:13] LABS: Appearance,Urine Clear (Clear); Bilirubin,Urine Negative (Negative); Blood,Urine Negative (Negative); Color,Urine Light Yellow; Glucose,Urine (UA) Negative (Negative); Ketones,Urine Negative (Negative); Leukocyte Esterase,Urine Negative (Negative); Nitrite,Urine Negative (Negative); PH, Urine 6.5 (5.0-8.0); Protein,Urine Negative (Negative); Specific Gravity,Urine 1.025 (1.001-1.035); Urobilinogen,Urine <2.0 mg/dL (<2.0)
[2024-12-13 17:25] LABS: ALT 51 U/L (4-34); AST 44 U/L (14-36); African American GFR (CKD) >90 (>60 ml/min/1.73 sqM); Albumin 4.8 g/dL (3.5-5.0); Alkaline Phosphatase 97 U/L (38-126); Anion Gap 10 mmol/L; Blood Urea Nitrogen 12 mg/dL (7-17); Calcium 9.9 mg/dL (8.4-10.2); Carbon Dioxide 24 mmol/L (22-30); Chloride 106 mmol/L (98-107); Glucose 88 mg/dL (74-99); Non-African American GFR(CKD) >90 (>60 ml/min/1.73 sqM); Potassium 3.9 mmol/L (3.5-5.1); Sodium 140 mmol/L (137-145); Total Bilirubin 0.5 mg/dL (0.2-1.3); Total Protein 7.7 g/dL (6.3-8.2)
[2024-12-13 17:33] LABS: Partial Thromboplastin Time 24.7 sec (22.0-30.0); Prothrombin Time 10.9 sec (10.0-12.5)
--- NOTE | 2024-12-13 17:53 | CT ---
EXAMINATION TYPE: CT abdomen pelvis w con DATE OF EXAM: 12/13/2024 5:47 PM COMPARISON: None. CLINICAL INDICATION: Female, 19 years old with history of pain and hematochezia, blood in stool TECHNIQUE:CT scan of the abdomen and pelvis is performed without Oral Contrast and with IV Contrast, patient injected with 100 ml mL of Isovue 300. CT DLP: 555.7 mGycm, Automated exposure control for dose reduction was used. FINDINGS: LUNG BASES-: No visible nodule. No infiltrate. LIVER/GB: No calcified gallstones. No space occupying hepatic lesion. Biliary tree is of normal ca liber. PANCREAS: No inflammation. No distinct mass. SPLEEN: No splenic enlargement. No lesion seen. ADRENALS: No nodule. No thickening. KIDNEYS/BLADDER: No hydronephrosis. No nephrolithiasis. No distinct renal mass. Urinary bladder g rossly unremarkable. BOWEL: Normal appendix. Normal bowel caliber. No inflammation. GENITAL ORGANS: 1.9 cm right ovarian cystic lesion. The left ovary and uterus are unremarkable. LYMPH NODES: No greater than 1cm abdominal or pelvic lymph nodes are appreciated. AORTA: No significant abnormality. OSSEOUS STRUCTURES: No significant abnormality is seen. OTHER: No significant additional abnormality is seen. IMPRESSION: 1. 1.9 cm right ovarian cystic lesion. 2. Otherwise unremarkable study. [facility], , 12/13/2024 5:50 PM
--- NOTE | 2024-12-13 17:55 | ED ---
GI Bleed HPI - General Chief complaint: GI Bleed Stated complaint: Blood in stool Time Seen by Provider: 12/13/24 16:05 Source: patient Mode of arrival: ambulatory Limitations: no limitations - History of Present Illness Initial comments: 19-year-old female presenting with chief complaint of hematochezia. Patient reports that about 1 week ago she was having blood in her stool. This stopped but today she had bright red blood in her bowel movements again so she came to the ER. She is having lower abdominal cramping. She thought she may be starting her menstrual cycle but she is certain that she is having rectal bleeding and not vaginal bleeding. She states that she feels like she has to urinate when she gets the cramping but chance of not having to. States that her stool is loose. She complains of nausea with no vomiting. No fever. No hist ory of abdominal surgeries. - Related Data Home Medications Medication Instructions Recorded Confirmed Etonogestrel [Nexplanon] 68 mg SQ [id number] 04/25/23 12/13/24 Acetaminophen/Pamabrom [Midol 1 - 2 tab PO Q6H PRN 12/13/24 12/13/24 Caplet] Amoxicillin 500 mg PO Q8H 12/13/24 12/13/24 Ibuprofen [Motrin] 800 mg PO Q8H PRN 12/13/24 12/13/24 Venlafaxine HCl ER [Effexor Xr] 300 mg PO DAILY 12/13/24 12/13/24 Allergies Allergy/AdvReac Type Severity Reaction Status Date / Time No Known Allergies Allergy Verified 12/13/24 16:12 Review of Systems ROS Statement: Those systems with pertinent positive or pertinent negative responses have been documented in the HPI. ROS Other: All systems not noted in ROS Statement are negative. Past Medical History Past Medical History: No Reported History History of Any Multi-Drug Resistant Organisms: None Reported Past Surgical History: No Surgical Hx Reported Past Anesthesia/Blood Transfusion Reactions: No Reported Reaction Past Psychological History: Anxiety, Depression Smoking Status: Never smoker Past Alcohol Use History: None Reported Past Drug Use History: Marijuana - Past Family History Mother Family Medical History: Dementia General Exam Limitations: no limitations General appearance: alert, in no apparent distress Head exam: Present: atraumatic, normocephalic, normal inspection Eye exam: Present: normal appearance, EOMI Neck exam: Present: normal inspection. Absent: meningismus Respiratory exam: Present: normal lung sounds bilaterally. Absent: respiratory distress, wheezes, rales, rhonchi, stridor Cardiovascular Exam: Present: regular rate, normal rhythm, normal heart sounds. Absent: systolic murmur, diastolic murmur, rubs, gallop, clicks GI/Abdominal exam: Present: soft. Absent: distended, tenderness, guarding, rebound, rigid Neurological exam: Present: alert, oriented X3 Psychiatric exam: Present: normal affect, normal mood Skin exam: Present: warm, dry, normal color Course Vital Signs 12/13/24 12/13/24 15:28 18:37 Temperature 98.7 F Pulse Rate 73 78 Respiratory 20 18 Rate Blood Pressure 129/83 123/80 O2 Sat by Pulse 99 99 Oximetry Medical Decision Making - Medical Decision Making Was pt. sent in by a medical professional or institution (GARY Mai, CYBER FORENSICS ANALYST, urgent care, hospital, or halfway...) When possible be specific @ -No Did you speak to anyone other than the patient for history (EMS, parent, family, police, friend...)? What history was obtained from this source @ -No Did you review nursing and triage notes (agree or disagree)? Why? @ -I reviewed and agree with nursing and triage notes Were old charts reviewed (outside hosp., previous admission, EMS record, old EKG, old radiological studies, urgent care reports/EKG's, halfway records)? Report findings @ -No old charts were reviewed Differential Diagnosis (chest pain, altered mental status, abdominal pain women, abdominal pain men, vaginal bleeding, weakness, fever, dyspnea, syncope, headache, dizziness, GI bleed, back pain, seizure, CVA, palpatations, mental health, musculoskeletal)? @ -MDM Differential GI Bleed: Esophageal varices, aortoenteric fistula, Darlin-Renner, gastritis, peptic ulcer disease, diverticulosis, inflammatory bowel disease, hemorrhoids, fissure, colitis, malignancy, Meckel’s diverticulum… this is not meant to be an all- inclusive list. EKG interpreted by me (3pts min.). @ -As above X-rays interpreted by me (1pt min.). @ -None done CT interpreted by me (1pt min.). @ -CT abdomen pelvis shows 1.9 cm right ovarian cystic lesion. Otherwise unremarkable study U/S interpreted by me (1pt. min.). @ -None done What testing was considered but not performed or refused? (CT, X-rays, U/S, labs)? Why? @ -None What meds were considered but not given or refused? Why? @ -None Did you discuss the management of the patient with other professionals (professionals i.e. Dr., PA, CYBER FORENSICS ANALYST, lab, RT, psych nurse, social service coordinator, medical service technician, teacher, associate loan officer, manager case)? Give summary @ -No Was smoking cessation discussed for >3mins.? @ -No Was critical care preformed (if so, how long)? @ -No Were there social determinants of health that impacted care today? How? (Ho melessness, low income, unemployed, alcoholism, drug addiction, transportation, low edu. Level, literacy, decrease access to med. care, penitentiary, rehab)? @ -No Was there de-escalation of care discussed even if they declined (Discuss DNR or withdrawal of care, Hospice)? DNR status @ -No What co-morbidities impacted this encounter? (DM, HTN, Smoking, COPD, CAD, Cancer, CVA, ARF, Chemo, Hep., AIDS, mental health diagnosis, sleep apnea, morbid obesity)? @ -None Was patient admitted / discharged? Hospital course, mention meds given and route, prescriptions, significant lab abnormalities, going to OR and other pertinent info. @ -19-year-old female presenting with chief complaint of blood present in her bowel movements today. This was bright red. Happened 1 week ago as well. Some lower abdominal cramping. History and physical examination are conducted. No leukocytosis or anemia. Mild transaminitis. Urine shows no infectious process or bleeding stool occult was negative. CT shows an ovarian cyst and no other acute process. On reassessment the patient is resting comfortably. She is hemodynamically stable. She is educated on today's findings. Instructed to follow-up with GI or general surgery for colonoscopy. Follow-up with PCP. Report back to ER with any new or worsening symptoms. Discussed return parameters and answered all questions. Patient conveyed verbal understanding and agreed to the plan. I discussed this case in detail with my attending Dr. Villatoro Undiagnosed new problem with uncertain prognosis? @ -No Drug Therapy requiring intensive monitoring for toxicity (Heparin, Nitro, Insulin, Cardizem)? @ -No Were any procedures done? @ -No Diagnosis/symptom? @ -Rectal bleeding Acute, or Chronic, or Acute on Chronic? @ -Acute Uncomplicated (without systemic symptoms) or Complicated (systemic symptoms)? @ -Uncomplicated Side effects of treatment? @ -No Exacerbation, Progression, or Severe Exacerbation? @ -No Poses a threat to life or bodily function? How? (Chest pain, [place], [place], pneumonia, PE, COPD, DKA, ARF, appy, cholecystitis, CVA, Diverticulitis, Homicidal, Suicidal, threat to staff... and all critical care pts) @ -Unlikely - Lab Data Result diagrams: 12/13/24 16:33 12/13/24 16:33 Lab Results 12/13/24 12/13/24 12/13/24 Range/Units 16:33 16:33 16:33 WBC 6.93 (4.50-10.00) 10*3/uL RBC 5.04 (4.10-5.20) 10*6/uL Hgb 14.5 (12.0-15.0) g/dL Hct 43.8 (37.2-46.3) % MCV 86.9 (80.0-97.0) fL MCH 28.8 (27.0-32.0) pg MCHC 33.1 (32.0-37.0) g/dL Plt Count 298 (140-440) 10*3/uL MPV 9.6 (9.5-12.2) fL Immature Gran % (Auto) 0.4 % Neutrophils % 56.3 % Lymphocytes % 34.6 % Monocytes % 6.3 % Eosinophils % 1.7 % Basophils % 0.7 % Immature Gran # 0.03 (0.00-0.04) 10*3/uL Neutrophils # 3.89 (1.80-7.70) 10*3/uL Lymphocytes # 2.40 (0.90-5.00) 10*3/uL Monocytes # 0.44 (0.20-1.00) 10*3/uL Eosinophils # 0.12 (0.04-0.35) 10*3/uL Basophils # 0.05 (0.00-0.10) 10*3/uL PT 10.9 (10.0-12.5) sec INR 1.0 (<1.2) APTT 24.7 (22.0-30.0) sec Sodium 140 (137-145) mmol/L Potassium 3.9 (3.5-5.1) mmol/L Chloride 106 (98-107) mmol/L Carbon Dioxide 24 (22-30) mmol/L Anion Gap 10 mmol/L BUN 12 (7-17) mg/dL Creatinine 0.69 (0.52-1.04) mg/dL Est GFR (CKD-EPI)AfAm >90 (>60 ml/min/1.73 sqM) Est GFR (CKD-EPI)NonAf >90 (>60 ml/min/1.73 sqM) Glucose 88 (74-99) mg/dL Plasma Lactic Acid Vinayak (0.7-2.0) mmol/L Calcium 9.9 (8.4-10.2) mg/dL Total Bilirubin 0.5 (0.2-1.3) mg/dL AST 44 H (14-36) U/L ALT 51 H (4-34) U/L Alkaline Phosphatase 97 (38-126) U/L Total Protein 7.7 (6.3-8.2) g/dL Albumin 4.8 (3.5-5.0) g/dL Urine Color Urine Appearance (Clear) Urine pH (5.0-8.0) Ur Specific [place] (1.001-1.035) Urine Protein (Negative) Urine Glucose (UA) (Negative) Urine Ketones (Negative) Urine Blood (Negative) Urine Nitrite (Negative) Urine Bilirubin (Negative) Urine Urobilinogen (<2.0) mg/dL Ur Leukocyte Esterase (Negative) Urine HCG, Qual (Not Detectd) Stool Occult Blood (Negative) 12/13/24 12/13/24 12/13/24 Range/Units 16:33 16:34 16:34 WBC (4.50-10.00) 10*3/uL RBC (4.10-5.20) 10*6/uL Hgb (12.0-15.0) g/dL Hct (37.2-46.3) % MCV (80.0-97.0) fL MCH (27.0-32.0) pg MCHC (32.0-37.0) g/dL Plt Count (140-440) 10*3/uL MPV (9.5-12.2) fL Immature Gran % (Auto) % Neutrophils % % Lymphocytes % % Monocytes % % Eosinophils % % Basophils % % Immature Gran # (0.00-0.04) 10*3/uL Neutrophils # (1.80-7.70) 10*3/uL Lymphocytes # (0.90-5.00) 10*3/uL Monocytes # (0.20-1.00) 10*3/uL Eosinophils # (0.04-0.35) 10*3/uL Basophils # (0.00-0.10) 10*3/uL PT (10.0-12.5) sec INR (<1.2) APTT (22.0-30.0) sec Sodium (137-145) mmol/L Potassium (3.5-5.1) mmol/L Chloride (98-107) mmol/L Carbon Dioxide (22-30) mmol/L Anion Gap mmol/L BUN (7-17) mg/dL Creatinine (0.52-1.04) mg/dL Est GFR (CKD-EPI)AfAm (>60 ml/min/1.73 sqM) Est GFR (CKD-EPI)NonAf (>60 ml/min/1.73 sqM) Glucose (74-99) mg/dL Plasma Lactic Acid Vinayak 0.8 (0.7-2.0) mmol/L Calcium (8.4-10.2) mg/dL Total Bilirubin (0.2-1.3) mg/dL AST (14-36) U/L ALT (4-34) U/L Alkaline Phosphatase (38-126) U/L Total Protein (6.3-8.2) g/dL Albumin (3.5-5.0) g/dL Urine Color Light Yellow Urine Appearance Clear (Clear) Urine pH 6.5 (5.0-8.0) Ur Specific [place] 1.025 (1.001-1.035) Urine Protein Negative (Negative) Urine Glucose (UA) Negative (Negative) Urine Ketones Negative (Negative) Urine Blood Negative (Negative) Urine Nitrite Negative (Negative) Urine Bilirubin Negative (Negative) Urine Urobilinogen <2.0 (<2.0) mg/dL Ur Leukocyte Esterase Negative (Negative) Urine HCG, Qual Not Detected (Not Detectd) Stool Occult Blood (Negative) 12/13/24 Range/Units 18:27 WBC (4.50-10.00) 10*3/uL RBC (4.10-5.20) 10*6/uL Hgb (12.0-15.0) g/dL Hct (37.2-46.3) % MCV (80.0-97.0) fL MCH (27.0-32.0) pg MCHC (32.0-37.0) g/dL Plt Count (140-440) 10*3/uL MPV (9.5-12.2) fL Immature Gran % (Auto) % Neutrophils % % Lymphocytes % % Monocytes % % Eosinophils % % Basophils % % Immature Gran # (0.00-0.04) 10*3/uL Neutrophils # (1.80-7.70) 10*3/uL Lymphocytes # (0.90-5.00) 10*3/uL Monocytes # (0.20-1.00) 10*3/uL Eosinophils # (0.04-0.35) 10*3/uL Basophils # (0.00-0.10) 10*3/uL PT (10.0-12.5) sec INR (<1.2) APTT (22.0-30.0) sec Sodium (137-145) mmol/L Potassium (3.5-5.1) mmol/L Chloride (98-107) mmol/L Carbon Dioxide (22-30) mmol/L Anion Gap mmol/L BUN (7-17) mg/dL Creatinine (0.52-1.04) mg/dL Est GFR (CKD-EPI)AfAm (>60 ml/min/1.73 sqM) Est GFR (CKD-EPI)NonAf (>60 ml/min/1.73 sqM) Glucose (74-99) mg/dL Plasma Lactic Acid Vinayak (0.7-2.0) mmol/L Calcium (8.4-10.2) mg/dL Total Bilirubin (0.2-1.3) mg/dL AST (14-36) U/L ALT (4-34) U/L Alkaline Phosphatase (38-126) U/L Total Protein (6.3-8.2) g/dL Albumin (3.5-5.0) g/dL Urine Color Urine Appearance (Clear) Urine pH (5.0-8.0) Ur Specific [place] (1.001-1.035) Urine Protein (Negative) Urine Glucose (UA) (Negative) Urine Ketones (Negative) Urine Blood (Negative) Urine Nitrite (Negative) Urine Bilirubin (Negative) Urine Urobilinogen (<2.0) mg/dL Ur Leukocyte Esterase (Negative) Urine HCG, Qual (Not Detectd) Stool Occult Blood Negative (Negative) Disposition Clinical Impression: Rectal bleeding Disposition: HOME SELF-CARE Condition: Fair Instructions (If sedation given, give patient instructions): Gastrointestinal Bleeding (ED) Additional Instructions: Follow-up with PCP and GI or general surgery for colonoscopy. Report back to ER with any new or worsening symptoms. Is patient prescribed a controlled substance at d/c from ED?: No Referrals: Froylan Chun DO [Primary Care Provider] - 1-2 days Opal Almaraz MD [STAFF PHYSICIAN] - 1-2 days Nic Trinidad MD [STAFF PHYSICIAN] - 1-2 days Time of Disposition: 19:08
[2024-12-13 19:31] VITALS: BP 121/86; PULSE 60; RESP 16
== END 2024-12-13 19:31 | disposition home or self-care (01) ==
LOC: EC 15:27
DX: K62.5 Hemorrhage of anus and rectum (principal); N83.201 Unspecified ovarian cyst, right side
CPT/HCPCS: 36415; 80053; 83605; 85025; 85610; 85730; 82272; 81003; 81025; 74177; 99285; 96360; 96361; Q9967

== ENCOUNTER 2024-12-22 09:01 | Observation (INO) | payer OTHER ==
--- NOTE | 2024-12-22 09:24 | ED ---
Psych HPI - General Source: patient, RN notes reviewed Mode of arrival: EMS - History of Present Illness MD Complaint: suicidal ideation Associated Psychiatric Symptoms: suicidal ideation <Jeanne Dyson - Last Filed: 12/22/24 15:59> <Zuleyka Rosales - Last Filed: 12/25/24 14:53> - General Stated Complaint: Suicidal - History of Present Illness Initial Comments: Patient is a 19-year-old female with a past medical history of depression for which she takes clonidine, trazodone, Effexor. She states that she took about 25 combined pills of clonidine, trazodone, Effexor this morning in a suicide attempt and took antinausea medication before and after so that she would not vomit. She also called the suicide hotline in order for somebody to find her. She states that she had another suicide attempt about 2 years ago. She states that she is feeling super tired and her legs feel like Jell-O, she also states that she has a headache and some lower abdominal cramping. She reports daily marijuana use but denies alcohol or other drugs. She reports that she has been having unchaged blood in her stools recently and has come here for those symptoms. (Jeanne Dyson) - Related Data Home Medications Medication Instructions Recorded Confirmed Ibuprofen [Motrin] 800 mg PO Q8H PRN 12/23/24 12/23/24 Nausea & Upset Stomach Relief 15 - 30 ml PO DIRECTED PRN 12/23/24 12/23/24 (Glyverin, Methylparaben, Purified Water) Venlafaxine HCl [Effexor XR] 300 mg PO DAILY 12/23/24 12/23/24 cloNIDine HCL [Catapres] 0.2 mg PO HS 12/23/24 12/23/24 traZODone HCL [Desyrel] 100 mg PO HS PRN 12/23/24 12/23/24 Allergies Allergy/AdvReac Type Severity Reaction Status Date / Time No Known Allergies Allergy Verified 12/22/24 09:44 Review of Systems ROS Other: All systems not noted in ROS Statement are negative. <Jeanne Dyson - Last Filed: 12/22/24 15:59> ROS Other: All systems not noted in ROS Statement are negative. <Zuleyka Rosales - Last Filed: 12/25/24 14:53> ROS Statement: Those systems with pertinent positive or pertinent negative responses have been documented in the HPI. Past Medical History Past Medical History: Asthma History of Any Multi-Drug Resistant Organisms: None Reported Past Surgical History: No Surgical Hx Reported Past Anesthesia/Blood Transfusion Reactions: No Reported Reaction Past Psychological History: Anxiety, Depression Smoking Status: Never smoker Past Alcohol Use History: Occasional Past Drug Use History: Marijuana - Past Family History Mother Family Medical History: Dementia <Jeanne Dyson - Last Filed: 12/22/24 15:59> General Exam Limitations: no limitations General appearance: other (sleepy) Head exam: Present: atraumatic Eye exam: Present: normal appearance, PERRL, EOMI Pupils: Present: normal accommodation Respiratory exam: Present: normal lung sounds bilaterally. Absent: respiratory distress, wheezes, rales, rhonchi, accessory muscle use Cardiovascular Exam: Present: regular rate, normal rhythm, normal heart sounds. Absent: systolic murmur, diastolic murmur GI/Abdominal exam: Present: soft, normal bowel sounds. Absent: distended, tenderness Extremities exam: Present: normal inspection, full ROM Neurological exam: Present: oriented X3, CN II-XII intact Psychiatric exam: Present: suicidal ideation Skin exam: Present: warm, dry, intact <Jeanne Dyson - Last Filed: 12/22/24 15:59> Course Vital Signs 12/22/24 12/22/24 12/22/24 09:05 09:35 10:10 Temperature 98.3 F Pulse Rate 56 L 51 L 51 L Respiratory 18 18 20 Rate Blood Pressure 107/74 O2 Sat by Pulse 98 Oximetry 12/22/24 12/22/24 11:15 16:12 Temperature 97.4 F L 97.8 F Pulse Rate 51 L 56 L Respiratory 20 16 Rate Blood Pressure 100/65 99/62 O2 Sat by Pulse 100 97 Oximetry Medical Decision Making - Lab Data Result diagrams: 12/22/24 09:35 12/22/24 09:35 <Jeanne Dyson - Last Filed: 12/22/24 15:59> - Lab Data Result diagrams: 12/22/24 09:35 12/23/24 04:41 <Zuleyka Rosales - Last Filed: 12/25/24 14:53> - Medical Decision Making Was pt. sent in by a medical professional or institution ([facility] Mai, [facility], urgent care, hospital, or residential...) When possible be specific @ -No Did you speak to anyone other than the patient for history (EMS, parent, family, police, friend...)? What history was obtained from this source @ -No Did you review nursing and triage notes (agree or disagree)? Why? @ -I reviewed and agree with nursing and triage notes Were old charts reviewed (outside hosp., previous admission, EMS record, old EKG, old radiological studies, urgent care reports/EKG's, residential records)? Report findings @ -No old charts were reviewed Differential Diagnosis? @ -Differential Mental Health Depression, anxiety, bipolar, psychosis, schizophrenia, borderline personality, situational depression, adjustment disorder, behavioral disorder, brain tumor, malingering, substance abuse, encephalopathy, medication reaction, dementia, hypothyroidism, degenerative neurologic disorder, lupus. This is not meant to be all-inclusive list EKG interpreted by me (3pts min.). @ -Normal sinus rhythm, no ST segment changes, no prolonged QT intervals X-rays interpreted by me (1pt min.). @ -None done CT interpreted by me (1pt min.). @ -None done U/S interpreted by me (1pt. min.). @ -None done What testing was considered but not performed or refused? (CT, X-rays, U/S, labs)? Why? @ -None What meds were considered but not given or refused? Why? @ -None Did you discuss the management of the patient with other professionals (lynda early i.e. GARY Mai, [facility]ER, lab, RT, psych nurse, marriage and family social worker, financial reporting director, teacher, chief quality officer, human services case manager)? Give summary @ -No Was smoking cessation discussed for >3mins.? @ -No Was critical care preformed (if so, how long)? @ -No Were there social determinants of health that impacted care today? How? (Homelessness, low income, unemployed, alcoholism, drug addiction, transportation, low edu. Level, literacy, decrease access to med. care, penitentiary, rehab)? @ -No Was there de-escalation of care discussed even if they declined (Discuss DNR or withdrawal of care, Hospice)? DNR status @ -No What co-morbidities impacted this encounter? (DM, HTN, Smoking, COPD, CAD, Cancer, CVA, ARF, Chemo, Hep., AIDS, mental health diagnosis, sleep apnea, morbid obesity)? @ -None Was patient admitted / discharged? Hospital course, mention meds given and route, prescriptions, significant lab abnormalities, going to OR and other pertinent info. @ -Patient is a 19-year-old female who was brought to the ED by EMS after an intentional overdose. On arrival her vital signs were stable. 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 Patient was placed on suicide precautions and a sitter was placed at bedside. Her vital signs have remained stable with some bradycardic episodes to the high 40s while sleeping. She has remained sleepy but easily arousable and responsive. Internal medicine accepted the admission for this patient to inpatient observation. Undiagnosed new problem with uncertain prognosis? @ -No Drug Therapy requiring intensive monitoring for toxicity (Heparin, Nitro, Insulin, Cardizem)? @ -No Were any procedures done? @ -No Diagnosis/symptom? @ -Intentional overdose Acute, or Chronic, or Acute on Chronic? @ -Acute Uncomplicated (without systemic symptoms) or Complicated (systemic symptoms)? @ -Default Side effects of treatment? @ -No Exacerbation, Progression, or Severe Exacerbation? @ -No Poses a threat to life or bodily function? How? (Chest pain, [place], [place], pneumonia, PE, COPD, DKA, ARF, appy, cholecystitis, CVA, Diverticulitis, Homicidal, Suicidal, threat to staff... and all critical care pts) @ -Yes, suicidal (Jeanne Dyson) I personally saw the patient and performed the critical portion of the service. I discussed the patient care with the resident physician. I directed management, care planning and final disposition of the patient. This includes, but not limited to, review of all lab work, radiological studies, EKG's, consultations, vital signs, and nursing notes. EKG interpreted by me (3pts min.) @Sinus rhythm, rate 61 bpm, normal intervals, no terminal R wave, no arrhythmia, no delta waves, no ST elevations,/depression/ischemic changes This is a 19 y/o female presenting for intentional overdose of trazodone, effexor and clonodine. VSS on arrival. Pt has calm and cooperative, though somewhat drowsy. No respiratory depression. No hyperflexia, rigitity or clonus on exam. PERRL. HR between 40s-50s while sleeping but increases appropriately to 60s-70s when awake. BP stable. PC contacted by resident physician. Though nal oxone was considered, pt is in stable condition, with aforementioned vitals and awakens easily while protecting her airway. Therefor I felt risks associated with naloxone administration outweighed potential benefit. Pt was admitted for continued observation on telemetry and psychiatric consultation. Critical care time of 35 minutes excluding separately billable procedures was spent in conjunction with critical care activities provided by the Resident and Attending simultaneously. I was present during [no procedures] for all critical portions of the procedure and as immediately available to furnish service during the entire procedure. (Zuleyka Rosales) - Lab Data Lab Results 12/22/24 12/22/24 12/22/24 Range/Units 09:30 09:35 09:35 WBC 7.74 (4.50-10.00) 10*3/uL RBC 4.66 (4.10-5.20) 10*6/uL Hgb 13.3 (12.0-15.0) g/dL Hct 39.9 (37.2-46.3) % MCV 85.6 (80.0-97.0) fL MCH 28.5 (27.0-32.0) pg MCHC 33.3 (32.0-37.0) g/dL Plt Count 293 (140-440) 10*3/uL MPV 9.7 (9.5-12.2) fL Immature Gran % (Auto) 0.3 % Neutrophils % 70.2 % Lymphocytes % 19.1 % Monocytes % 7.9 % Eosinophils % 1.7 % Basophils % 0.8 % Immature Gran # 0.02 (0.00-0.04) 10*3/uL Neutrophils # 5.44 (1.80-7.70) 10*3/uL Lymphocytes # 1.48 (0.90-5.00) 10*3/uL Monocytes # 0.61 (0.20-1.00) 10*3/uL Eosinophils # 0.13 (0.04-0.35) 10*3/uL Basophils # 0.06 (0.00-0.10) 10*3/uL Sodium 140 (137-145) mmol/L Potassium 4.2 (3.5-5.1) mmol/L Chloride 107 (98-107) mmol/L Carbon Dioxide 25 (22-30) mmol/L Anion Gap 8 mmol/L BUN 11 (7-17) mg/dL Creatinine 0.59 (0.52-1.04) mg/dL Est GFR (CKD-EPI)AfAm >90 (>60 ml/min/1.73 sqM) Est GFR (CKD-EPI)NonAf >90 (>60 ml/min/1.73 sqM) Glucose 138 H (74-99) mg/dL Calcium 9.6 (8.4-10.2) mg/dL Total Bilirubin 0.4 (0.2-1.3) mg/dL AST 27 (14-36) U/L ALT 27 (4-34) U/L Alkaline Phosphatase 71 (38-126) U/L Total Protein 7.0 (6.3-8.2) g/dL Albumin 4.3 (3.5-5.0) g/dL HCG, Quant <2.4 mIU/mL Salicylates <1.0 mg/dL Urine Opiates Screen Not Detected (NotDetected) Ur Oxycodone Screen Not Detected (NotDetected) Urine Methadone Screen Not Detected (NotDetected) Acetaminophen <10.0 ug/mL Ur Barbiturates Screen Not Detected (NotDetected) U Tricyclic Antidepress Not Detected (NotDetected) Ur Phencyclidine Scrn Not Detected (NotDetected) Ur Amphetamines Screen Not Detected (NotDetected) U Methamphetamines Scrn Not Detected (NotDetected) U Benzodiazepines Scrn Not Detected (NotDetected) Urine Cocaine Screen Not Detected (NotDetected) U Marijuana (THC) Screen Detected H (NotDetected) Serum Alcohol <10 mg/dL Disposition Time of Disposition: 12:50 <Jeanne Dyson - Last Filed: 12/22/24 15:59> <Zuleyka Rosales - Last Filed: 12/25/24 14:53> Clinical Impression: Attempted suicide Disposition: ADMITTED IP TO THIS HOSP Condition: Stable
[2024-12-22 09:44] LABS: Basophils # (A) 0.06 10*3/uL (0.00-0.10); Basophils % (A) 0.8 %; Eosinophils # (A) 0.13 10*3/uL (0.04-0.35); Eosinophils % (A) 1.7 %; HCT 39.9 % (37.2-46.3); HGB 13.3 g/dL (12.0-15.0); Lymphocytes # (A) 1.48 10*3/uL (0.90-5.00); Lymphocytes % (A) 19.1 %; MCH 28.5 pg (27.0-32.0); MCHC 33.3 g/dL (32.0-37.0); MCV 85.6 fL (80.0-97.0); Mean Platelet Volume 9.7 fL (9.5-12.2); Monocytes # (A) 0.61 10*3/uL (0.20-1.00); Monocytes % (A) 7.9 %; Neutrophils # (A) 5.44 10*3/uL (1.80-7.70); Neutrophils % (A) 70.2 %; Platelet Count 293 10*3/uL (140-440); RBC 4.66 10*6/uL (4.10-5.20); RDW 13.6 % (11.5-14.5); WBC 7.74 10*3/uL (4.50-10.00)
[2024-12-22 10:00] LABS: Amphetamine Screen,Urine Not Detected (NotDetected); Barbiturate Screen,Urine Not Detected (NotDetected); Benzodiazepines Screen,Urine Not Detected (NotDetected); Cocaine Screen,Urine Not Detected (NotDetected); Methadone Screen, Urine Not Detected (NotDetected); Opiate Screen,Urine Not Detected (NotDetected); Oxycodone Screen, Urine Not Detected (NotDetected); Phencyclidine Screen,Urine Not Detected (NotDetected); Tricyclic Antidepressant,Urine Not Detected (NotDetected); Urn Cannabinoid Scrn Detected (NotDetected)
[2024-12-22 10:04] LABS: ALT 27 U/L (4-34); AST 27 U/L (14-36); Acetaminophen <10.0 ug/mL; African American GFR (CKD) >90 (>60 ml/min/1.73 sqM); Albumin 4.3 g/dL (3.5-5.0); Alcohol <10 mg/dL; Alkaline Phosphatase 71 U/L (38-126); Anion Gap 8 mmol/L; Blood Urea Nitrogen 11 mg/dL (7-17); Calcium 9.6 mg/dL (8.4-10.2); Carbon Dioxide 25 mmol/L (22-30); Chloride 107 mmol/L (98-107); Glucose 138 mg/dL (74-99); Non-African American GFR(CKD) >90 (>60 ml/min/1.73 sqM); Potassium 4.2 mmol/L (3.5-5.1); Salicylate <1.0 mg/dL; Sodium 140 mmol/L (137-145); Total Bilirubin 0.4 mg/dL (0.2-1.3)
[2024-12-22] MEDS: SODIUM CHLORIDE 0.9% 1,000 ML IV ONE (10:10)
[2024-12-22 10:18] LABS: HCG,Quantitative Serum <2.4 mIU/mL
--- NOTE | 2024-12-22 13:09 | P.HPIM ---
History of Present Illness 19-year-old female overdosed on total 25 pills of clonidine trazodone and Effexor in an attempt to commit suicide. Patient did not vomit. Patient took antinausea medication so that she will not vomit. Patient did not receive any activated charcoal via NG tube. Patient urine drug screen also positive for marijuana. Patient's EKG initially did not show any significant abnormality QTc is not prolonged although I noticed some dropped beats because of which I repeated the EKG again which did not show any high degree AV block although patient has some sinus bradycardia. Patient although need to be on telemetry monitoring closely monitored. Patient denied any lightheadedness she is drowsy sleepy. REVIEW OF SYSTEMS: All other systems are negative except those mentioned in the HPI PHYSICAL EXAMINATION: GENERAL: The patient is alert and oriented x3, not in any acute distress. Well developed, well nourished. HEENT: Pupils are round and equally reacting to light. EOMI. No scleral icterus. No conjunctival pallor. Normocephalic, atraumatic. No pharyngeal erythema. No thyromegaly. CARDIOVASCULAR: S1 and S2 present. No murmurs, rubs, or gallops. PULMONARY: Chest is clear to auscultation, no wheezing or crackles. ABDOMEN: Soft, nontender, nondistended, normoactive bowel sounds. No palpable organomegaly. MUSCULOSKELETAL: No joint swelling or deformity. EXTREMITIES: No cyanosis, clubbing, or pedal edema. NEUROLOGICAL: Gross neurological examination did not reveal any focal deficits. SKIN: No rashes. Assessment and plan -Depression suicide attempt: One-on-one sitter psychiatric consultation - Overdose on multiple drugs as mentioned above patient will be closely monitored on telemetry for any heart rhythm abnormalities, QT prolongation Marijuana use: Counseling was provided DVT prophylaxis: Early ambulation Past Medical History Past Medical History: Asthma History of Any Multi-Drug Resistant Organisms: None Reported Past Surgical History: No Surgical Hx Reported Past Anesthesia/Blood Transfusion Reactions: No Reported Reaction Past Psychological History: Anxiety, Depression Smoking Status: Never smoker Past Alcohol Use History: Occasional Past Drug Use History: Marijuana - Past Family History Mother Family Medical History: Dementia Medications and Allergies Home Medications Medication Instructions Recorded Confirmed Type Ibuprofen [Motrin] 800 mg PO Q8H PRN 12/13/24 12/22/24 History Venlafaxine HCl ER [Effexor Xr] 300 mg PO DAILY 12/13/24 12/22/24 History Nausea & Upset Stomach Relief 15 - 30 ml PO DIRECTED PRN 12/22/24 12/22/24 Hi story (Glycerin, Methylparaben, Purified Water) cloNIDine HCL [Catapres] 0.2 mg PO HS 12/22/24 12/22/24 History traZODone HCL [Desyrel] 100 mg PO HS PRN 12/22/24 12/22/24 History Allergies Allergy/AdvReac Type Severity Reaction Status Date / Time No Known Allergies Allergy Verified 12/22/24 09:44 Physical Exam Vitals: Vital Signs Temp Pulse Resp BP Pulse Ox 12/22/24 11:15 97.4 F L 51 L 20 100/65 100 12/22/24 10:10 51 L 20 12/22/24 09:35 51 L 18 12/22/24 09:05 98.3 F 56 L 18 107/74 98 Intake and Output 12/21/24 12/22/24 12/22/24 22:59 06:59 14:59 Other: Weight 56.699 kg Results CBC & Chem 7: 12/22/24 09:35 12/22/24 09:35 Labs: Abnormal Lab Results - Last 24 Hours (Table) 12/22/24 12/22/24 Range/Units 09:30 09:35 Glucose 138 H (74-99) mg/dL U Marijuana (THC) Screen Detected H (NotDetected)
[2024-12-22] MEDS ORDERED: NALOXONE 0.4 MG/ML 1 ML VIAL IV PRN (14:38)
[2024-12-23 08:30] LABS: ALT 26 U/L (8-44); AST 20 U/L (13-35); Albumin 4.2 g/dL (3.8-4.9); Alkaline Phosphatase 90 U/L (41-126); BUN/Creat Ratio 9.88 Ratio (12.00-20.00); Blood Urea Nitrogen 7.9 mg/dL (9.0-27.0); Calcium 9.3 mg/dL (8.7-10.3); Carbon Dioxide 24.1 mmol/L (21.6-31.8); Chloride 110 mmol/L (96-109); Globulin 2.1 g/dL (1.6-3.3); Glucose 121 mg/dL (70-110); Potassium 4.4 mmol/L (3.5-5.5); Sodium 142 mmol/L (135-145); Total Bilirubin <0.2 mg/dL (0.3-1.2); Total Protein 6.3 g/dL (6.2-8.2)
[2024-12-23] MEDS ORDERED: ONDANSETRON 4 MG/2 ML VIAL IVP PRN (10:07)
[2024-12-23] MEDS: SODIUM CHLORIDE 0.9% 500 ML 500 ML IV SCH (11:12)
--- NOTE | 2024-12-23 14:35 | P.HP ---
Psychiatric H&P - . H&P Date: 12/23/24 History & Physical: Allergies Allergy/AdvReac Type Severity Reaction Status Date / Time No Known Allergies Allergy Verified 12/22/24 09:44 Vital Signs Temp 98.3 F 12/23/24 07:00 Pulse 78 12/23/24 07:00 Resp 15 12/23/24 08:00 BP 101/66 12/23/24 07:00 Pulse Ox 98 12/23/24 07:00 FiO2 Intake & Output 12/22/24 12/23/24 12/23/24 18:59 06:59 18:59 Intake Total 118 Balance 118 Weight 56.699 kg Intake: Oral 118 Other: Voiding Method Toilet Toilet Toilet # Voids 2 Laboratory Last Values WBC 7.74 10*3/uL (4.50-10.00) 12/22/24 09:35 RBC 4.66 10*6/uL (4.10-5.20) 12/22/24 09:35 Hgb 13.3 g/dL (12.0-15.0) 12/22/24 09:35 Hct 39.9 % (37.2-46.3) 12/22/24 09:35 MCV 85.6 fL (80.0-97.0) 12/22/24 09:35 MCH 28.5 pg (27.0-32.0) 12/22/24 09:35 MCHC 33.3 g/dL (32.0-37.0) 12/22/24 09:35 Plt Count 293 10*3/uL (140-440) 12/22/24 09:35 MPV 9.7 fL (9.5-12.2) 12/22/24 09:35 Immature Gran % (Auto) 0.3 % 12/22/24 09:35 Neutrophils % 70.2 % 12/22/24 09:35 Lymphocytes % 19.1 % 12/22/24 09:35 Monocytes % 7.9 % 12/22/24 09:35 Eosinophils % 1.7 % 12/22/24 09:35 Basophils % 0.8 % 12/22/24 09:35 Immature Gran # 0.02 10*3/uL (0.00-0.04) 12/22/24 09:35 Neutrophils # 5.44 10*3/uL (1.80-7.70) 12/22/24 09:35 Lymphocytes # 1.48 10*3/uL (0.90-5.00) 12/22/24 09:35 Monocytes # 0.61 10*3/uL (0.20-1.00) 12/22/24 09:35 Eosinophils # 0.13 10*3/uL (0.04-0.35) 12/22/24 09:35 Basophils # 0.06 10*3/uL (0.00-0.10) 12/22/24 09:35 Sodium 142 mmol/L (135-145) 12/23/24 04:41 Potassium 4.4 mmol/L (3.5-5.5) 12/23/24 04:41 Chloride 110 mmol/L (96-109) H 12/23/24 04:41 Carbon Dioxide 24.1 mmol/L (21.6-31.8) 12/23/24 04:41 Anion Gap 7.90 mmol/L (4.00-12.00) 12/23/24 04:41 BUN 7.9 mg/dL (9.0-27.0) L 12/23/24 04:41 Creatinine 0.8 mg/dL (0.6-1.5) 12/23/24 04:41 Est GFR (CKD-EPI) 107 (>=60) 12/23/24 04:41 Est GFR (CKD-EPI)AfAm >90 (>60 ml/min/1.73 sqM) 12/22/24 09:35 Est GFR (CKD-EPI)NonAf >90 (>60 ml/min/1.73 sqM) 12/22/24 09:35 BUN/Creatinine Ratio 9.88 Ratio (12.00-20.00) L 12/23/24 04:41 Glucose 121 mg/dL (70-110) H 12/23/24 04:41 Calcium 9.3 mg/dL (8.7-10.3) 12/23/24 04:41 Magnesium 2.0 mg/dL (1.5-2.4) 12/23/24 04:41 Total Bilirubin <0.2 mg/dL (0.3-1.2) L 12/23/24 04:41 AST 20 U/L (13-35) 12/23/24 04:41 ALT 26 U/L (8-44) 12/23/24 04:41 Alkaline Phosphatase 90 U/L (41-126) 12/23/24 04:41 Total Protein 6.3 g/dL (6.2-8.2) 12/23/24 04:41 Albumin 4.2 g/dL (3.8-4.9) 12/23/24 04:41 Globulin 2.1 g/dL (1.6-3.3) 12/23/24 04:41 Albumin/Globulin Ratio 2.00 Ratio (1.60-3.17) 12/23/24 04:41 HCG, Quant <2.4 mIU/mL 12/22/24 09:35 Salicylates <1.0 mg/dL 12/22/24 09:35 Urine Opiates Screen Not Detected (NotDetected) 12/22/24 09:30 Ur Oxycodone Screen Not Detected (NotDetected) 12/22/24 09:30 Urine Methadone Screen Not Detected (NotDetected) 12/22/24 09:30 Acetaminophen <10.0 ug/mL 12/22/24 09:35 Ur Barbiturates Screen Not Detected (NotDetected) 12/22/24 09:30 U Tricyclic Antidepress Not Detected (NotDetected) 12/22/24 09:30 Ur Phencyclidine Scrn Not Detected (NotDetected) 12/22/24 09:30 Ur Amphetamines Screen Not Detected (NotDetected) 12/22/24 09:30 U Methamphetamines Scrn Not Detected (NotDetected) 12/22/24 09:30 U Benzodiazepines Scrn Not Detected (NotDetected) 12/22/24 09:30 Urine Cocaine Screen Not Detected (NotDetected) 12/22/24 09:30 U Marijuana (THC) Screen Detected (NotDetected) H 12/22/24 09:30 Serum Alcohol <10 mg/dL 12/22/24 09:35 12/23/24 14:30 IDENTIFYING DATA: This patient is a 19-year-old female, employed and living independently REASON FOR REFERRAL: Psychiatry was consulted for depression, SA HISTORY OF PRESENT ILLNESS: The patient presented to the hospital with suicide attempt via OD. Patient reportedly took 50 pills of clonidine, trazodone and Effexor and immediately called the suicide hotline. Patient seen and evaluated in her room with sitter at bedside. Patient appeared to minimize her attempt and concerns, stating that she was not thinking clearly due to not sleeping for a week and that she does not think she was attempting suicide. She states immediately regretting taking the pills and that is why she had called the suicide hotline, reportedly took roughly 25 of her pills stating that she was attempting to go to sleep. She reports difficulties paying her rent and having to rely on her parents as the predominant stressors, stating her parents and her have long-term issues. She does live independently and is employed. She describes the attempt as more of an impulsive act, denying any planning of this. She does report sleep and appetite difficulties, anhedonia, feeling helpless, denying any energy changes. She denied any anxiety. She does report a history of questionable manic symptoms however does report a previous diagnosis of borderline that appears to coincide with the symptoms. At this time patient denies any suicidal or homicidal ideations, intent or plan. Patient denies any auditory, visual hallucinations and denies any paranoia or delusions. Patients admits to using cannabis occasionally. PAST PSYCHIATRIC HISTORY: Patient has a history of depression, borderline personality disorder. She is currently on Effexor XR 300 mg daily for depression, clonidine 0.2 mg at bedtime for sleep she reports 5 inpatient hospitalizations most recent being September 2023. Patient denies any psychiatric outpatient follow-up. Patient reports 1 suicide attempt back in 2022. PAST MEDICAL HISTORY: Asthma. ALLERGIES: as per EMR. CHEMICAL DEPENDENCY HISTORY: as per HPI. FAMILY PSYCHIATRIC/SUBSTANCE USE HISTORY: She states her mom has bipolar disorder and OCD and that her father also has bipolar disorder and substance use issues SOCIAL HISTORY: Patient is single and has no children. She is employed, completed some college and living independently. MENTAL STATUS EXAM: General Appearance: Patient appears to be stated age is alert, pleasant, and cooperative. Patient appears to have fair hygiene and grooming wearing hospital gown with fair eye contact. Behavior: Patient is calmly lying in bed without any agitated behavior. Speech: Patient's speech is fluent and nonpressured. Mood/Affect: Patient reports their mood is "depressed", affect is congruent Suicidality/Homicidality: Patient denies having any suicidal or homicidal ideation intent or plan. Perceptions: Patient denies any visual hallucinations and denies any auditory hallucinations Though content/process: There is no evidence of any delusional thought content and thought process is linear and goal-directed. Memory and concentration: AOX3, grossly intact for the purposes of this session. Can spell "WORLD" backwards Judgment and insight: Poor IMPRESSIONS: Suicide attempt via OD Major depressive disorder, recurrent, severe Rule out bipolar disorder current episode depressed History of borderline personality disorder PLAN: -At this time patient DOES meet criteria for inpatient psychiatric admission. -Would recommend the following medication changes/additions: Continue holding psychotropic medications until medically cleared -Continue 1:1 sitter for safety -Cannot leave AMA at this time. Patient will need a petition and certification if attempting to leave AMA. -When medically stable, patient is eligible for transfer to a psych bed when available. -Psychiatry will sign off at this time -Please contact with any questions.
[2024-12-23 14:59] VITALS: PULSE 59
--- NOTE | 2024-12-23 15:09 | P.DS ---
Providers Date of admission: 12/22/24 14:38 Attending physician: Camelia Peres Consults: 12/22/24 13:08 Consult Physician Routine Consulting Provider: Psychiatry - [facility] Psychiatry Consult Reason/Comments: Depression, suicide attempt Do you want consulting provider notified?: Already Contacted Primary care physician: Froylan Chun DO Hospital Course: Final Diagnosis -Depression suicide attempt: One-on-one sitter psychiatric consultation - Overdose on multiple drugs as mentioned above patient will be closely monitored on telemetry for any heart rhythm abnormalities, QT prolongation Marijuana use: Counseling was provided DVT prophylaxis: Early ambulation Discharge Disposition Stable medically for DC to psych unit. Hospital Course 19-year-old female overdosed on total 25 pills of clonidine trazodone and Effexor in an attempt to commit suicide. Patient did not vomit. Patient took antinausea medication so that she will not vomit. Patient did not receive any activated charcoal via NG tube. Patient urine drug screen also positive for marijuana. Patient's EKG initially did not show any significant abnormality QTc is not prolonged although I noticed some dropped beats because of which I repeated the EKG again which did not show any high degree AV block although patient has some sinus bradycardia. Patient although need to be on telemetry monitoring closely monitored. Patient is awake alert and oriented today. She has no acute complaints. Denies any nausea vomiting. No shortness of breath or chest pain. Today she denies suicidal ideations. She is cleared medically for discharge to inpatient psychiatric unit. Please see medication reconciliation for a list of current medications. Thank you for allowing us to participate in the care of this patient. The impression and plan of care has been dictated by Deyanira Thomas, Nurse Practitioner as directed. Dr. Ja MD I have performed a history and physical examination and medical decision making of this patient, discussed the same with the dictator, and agree with the dictators assessment and plan as written, documented as a scribe. Based on total visit time, I have performed more than 50% of this visit. Patient Condition at Discharge: Stable Plan - Discharge Summary Discharge Rx Participant: No New Discharge Prescriptions: Discontinued Nausea & Upset Stomach Relief (Glycerin, Methylparaben, Purified Water) 15 - 30 ml PO DIRECTED PRN PRN Reason: upset stomach/nausea traZODone HCL [Desyrel] 100 mg PO HS PRN PRN Reason: sleep Ibuprofen [Motrin] 800 mg PO Q8H PRN PRN Reason: Pain Venlafaxine HCl ER [Effexor Xr] 300 mg PO DAILY cloNIDine HCL [Catapres] 0.2 mg PO HS Follow up Appointment(s)/Referral(s): Froylan Chun DO [Primary Care Provider] - 1-2 days Activity/Diet/Wound Care/Special Instructions: Patient is cleared medically for DC to psych unit.
[2024-12-23] MEDS: ACETAMINOPHEN TAB 325 MG TAB PO PRN (18:29)
[2024-12-23 19:28] VITALS: BP 111/73; RESP 17; TEMP 98.3
== END 2024-12-23 19:50 ==
LOC: EC 09:01 → 6NMEDSUR 14:38
PROVIDERS: ADMIT Internal Medicine; ATTEND Internal Medicine
DX: T43.212A Poisoning by selective serotonin and norepinephrine reuptake inhibitors, intentional self-harm, initial encounter (principal); T46.5X2A Poisoning by other antihypertensive drugs, intentional self-harm, initial encounter; F33.2 Major depressive disorder, recurrent severe without psychotic features; R00.1 Bradycardia, unspecified; F60.3 Borderline personality disorder; R51.9 Headache, unspecified; R10.30 Lower abdominal pain, unspecified; K92.1 Melena; F12.90 Cannabis use, unspecified, uncomplicated; Z71.51 Drug abuse counseling and surveillance of drug abuser; Z79.899 Other long term (current) drug therapy; Z74.3 Need for continuous supervision; Z91.51 Personal history of suicidal behavior
CPT/HCPCS: 82075; 96360; 96361; 99285; 36415; 93005; 80053 ×2; 83735; 85025; 81025; 84702; 80306; 80143; 87635; 80179; G0378 ×2; G0480; 80320

== ENCOUNTER 2024-12-23 17:37 | Inpatient (IN) | payer MEDICAID, OTHER ==
[2024-12-23] MEDS ORDERED: MAGNESIUM HYDROXIDE 2,400 MG/30 ML CUP PO PRN (17:42)
[2024-12-23] MEDS ORDERED: LORazepam 2 MG/ML INJ IM PRN (17:42)
[2024-12-24] MEDS: IBUPROFEN 600 MG TAB PO PRN (02:17)
[2024-12-24] MEDS: ACETAMINOPHEN TAB 325 MG TAB PO PRN (08:30)
[2024-12-24 08:51] LABS: ALT 26 U/L (4-34); AST 25 U/L (14-36); Albumin 4.2 g/dL (3.5-5.0); Alkaline Phosphatase 88 U/L (38-126); Bilirubin, Delta 0.2 mg/dL (0.0-0.2); Bilirubin,Unconjugated 0.3 mg/dL (0.0-1.1); Total Bilirubin 0.5 mg/dL (0.2-1.3); Total Protein 6.9 g/dL (6.3-8.2)
[2024-12-24] MEDS ORDERED: VENLAFAXINE HCL ER 150 MG CAP PO SCH (11:30)
[2024-12-24 11:36] LABS: Chol/HDL Ratio 2.46 Ratio; LDL Cholesterol,Calculated 67.9 mg/dL (0.0-131.0); VLDL Calculation 16.38 mg/dL (5.00-40.00)
[2024-12-24] MEDS: busPIRone HCl 5 MG TAB PO SCH (11:42)
[2024-12-24] MEDS: VENLAFAXINE HCL ER 75 MG CAP PO SCH (11:42)
--- NOTE | 2024-12-24 13:02 | P.HP ---
Psychiatric H&P - . H&P Date: 12/24/24 History & Physical: Allergies Allergy/AdvReac Type Severity Reaction Status Date / Time No Known Allergies Allergy Verified 12/22/24 09:44 Vital Signs Temp 97.4 F L 12/24/24 08:27 Pulse 90 12/24/24 08:41 Resp 16 12/23/24 20:54 BP 76/50 12/24/24 11:43 Pulse Ox 100 12/24/24 08:41 FiO2 Intake & Output 12/23/24 12/24/24 12/24/24 18:59 06:59 18:59 Weight 56 kg 58.287 kg Laboratory Last Values Estimated Ave Glu mg/dL 105 mg/dL 12/24/24 07:49 Hemoglobin A1c 5.3 % (<=6.0) 12/24/24 07:49 Total Bilirubin 0.5 mg/dL (0.2-1.3) 12/24/24 07:49 Conjugated Bilirubin 0.0 mg/dL (0.0-0.3) 12/24/24 07:49 Unconjugated Bilirubin 0.3 mg/dL (0.0-1.1) 12/24/24 07:49 Delta Bilirubin 0.2 mg/dL (0.0-0.2) 12/24/24 07:49 AST 25 U/L (14-36) 12/24/24 07:49 ALT 26 U/L (4-34) 12/24/24 07:49 Alkaline Phosphatase 88 U/L (38-126) 12/24/24 07:49 Total Protein 6.9 g/dL (6.3-8.2) 12/24/24 07:49 Albumin 4.2 g/dL (3.5-5.0) 12/24/24 07:49 Triglycerides 81.90 mg/dL (0.00-149.00) 12/24/24 07:49 Cholesterol 142.00 mg/dL (0.00-200.00) 12/24/24 07:49 LDL Cholesterol, Calc 67.9 mg/dL (0.0-131.0) 12/24/24 07:49 VLDL Cholesterol, Calc 16.38 mg/dL (5.00-40.00) 12/24/24 07:49 HDL Cholesterol 57.70 mg/dL (40.00-60.00) 12/24/24 07:49 Cholesterol/HDL Ratio 2.46 Ratio 12/24/24 07:49 TSH 2.310 mIU/L (0.465-4.680) 12/24/24 07:49 12/24/24 12:55 IDENTIFYING DATA: Patient is a 19-year-old female, employed and living independently CHIEF COMPLAINT: Suicide attempt via OD HPI: Patient presented to the hospital with suicide attempt. Patient was seen during consult and the note is as follows, "The patient presented to the [facility] with suicide attempt via OD. Patient reportedly took 50 pills of clonidine, trazodone and Effexor and immediately called the suicide hotline. Patient seen and evaluated in her room with sitter at bedside. Patient appeared to minimize her attempt and concerns, stating that she was not thinking clearly due to not sleeping for a week and that she does not think she was attempting suicide. She states immediately regretting taking the pills and that is why she had called the suicide hotline, reportedly took roughly 25 of her pills stating that she was attempting to go to sleep. She reports difficulties paying her rent and having to rely on her parents as the predominant stressors, stating her parents and her have long-term issues. She does live independently and is employed. She describes the attempt as more of an impulsive act, denying any planning of this. She does report sleep and appetite difficulties, anhedonia, feeling helpless, denying any energy changes. She denied any anxiety. She does report a history of questionable manic symptoms however does report a previous diagnosis of borderline that appears to coincide with the symptoms. At this time patient denies any suicidal or homicidal ideations, intent or plan. Patient denies any auditory, visual hallucinations and denies any paranoia or delusions. Patients admits to using cannabis occasionally." Patient seen and evaluated on the unit and was agreeable with speaking to procedure writer in office. She states she has high anxiety related to her employment and dealing with her family that appears more stable during this admission. She states her Effexor was recently increased 2 months ago and she has noticed worsening in her anxiety with this increase but overall effective for her depression. She states her PCP has been managing her mental health symptoms, reporting that clonidine was recently added for her sleep however she noticed that this actually worsened her depression. She reports sleep difficulties being the ultimate trigger for her taking the pills. Patient denies any suicidal or homicidal ideations intent or plan. At this time patient denies any auditory or visual hallucinations. PAST PSYCHIATRIC HISTORY: Patient has a history of depression, borderline personality disorder. Patient is currently prescribed Effexor XR 300 mg daily, clonidine 0.2 mg at bedtime. Patient reports 5 previous inpatient hospitalizations most recent being September 2023. Patient denies any psychiatric outpatient follow-up. Patient reports 1 suicide attempt back in 2022. PMH: as per ER note ALLERGIES: as per EMR SUBSTANCE USE HISTORY: Cannabis occasionally, UDS was positive for cannabis FAMILY PSYCHIATRIC/SUBSTANCE USE HISTORY: Patient states her mother has bipolar disorder and OCD, father has bipolar disorder and substance use issues SOCIAL HISTORY: Patient is single and has no children. She is employed, working at [employer] office and completed some college, living independently. MENTAL STATUS EXAM: General Appearance: Patient appears to be stated age is alert, directable, and attempts to cooperate. Patient appears to have fair hygiene and grooming. Behavior: Patient is seated without any agitated behavior. Speech: Patient's speech is fluent and nonpressured. Mood/Affect: Patient reports their mood is "anxious", affect is congruent and constricted. Suicidality/Homicidality: Patient denies having any homicidal ideation intent or plan. Denies any suicidal ideations intent or plan Perceptions: Patient denies any visual hallucinations and denies any auditory hallucinations Though content/process: There is no evidence of any delusional thought content and thought process is linear and goal-directed. Memory and concentration: AOX3, grossly intact for the purposes of this session. Can spell "WORLD" backwards Judgment and insight: Poor STRENGTHS/WEAKNESSES: strength is that patient is resilient. Weakness is that patient has poor judgment and is impulsive INTELLECT: Average IMPRESSIONS: Major depressive disorder, recurrent, severe Suicide attempt via OD Rule out bipolar disorder, current episode depressed History of borderline personality PLAN: -Patient is admitted under voluntary status to MHU for stabilization of psychiatric symptoms and safety. Patient has signed adult voluntary form and and is placed in patient's chart. -Medications : Restart Effexor XR at 225 mg daily for depression/anxiety, start Seroquel 50 mg at bedtime for insomnia/mood stabilization, BuSpar 5 mg twice daily for anxiety - Ativan PRN for agitation/aggression -Patient was informed of the risks, benefits and side effects of the medication and patient verbally consented to taking the medications. Patient signed med consent form and was placed in chart. Patient offered and accepted patient education sheet for psychotropic medications. -Internal Medicine consult to perform medical evaluation and physical. -NRT -not needed as patient does not smoke -SW on board for discharge planning. Encourage patient to participate in groups to work on coping skills. Anticipate discharge in ~3 days.
--- NOTE | 2024-12-24 16:22 | P.CONS ---
History of Present Illness - Reason for Consult Consult date: 12/24/24 Medical H and P Requesting physician: Juan Manuel Whyte - History of Present Illness This is a 19-year-old female overdosed on total 25 pills of Clonidine Trazodone and Effexor in an attempt to commit suicide. Patient took anti-nausea medication so that she will not vomit. Patient did not receive any activated charcoal via NG tube. Patient urine drug screen also positive for marijuana. Patient's EKG initially did not show any significant abnormality QTc is not prolonged on admission. Patient was monitored closely on telemetry and received fluid resuscitation. Patient is awake alert and oriented today. She has no acute complaints. Denies any nausea vomiting. No shortness of breath or chest pain. Today she denies suicidal ideations. Patient has an apartment and currently employed; reports issues sleeping and feeling anxious. She took the pills as more of an impulse and ended up calling the suicide hotline. Patient does have history of borderling personality disorder as well as anxiety/depression, asthma, marijuana use. Patient is evaluated in follow up today on the mental health unit with no acute complaints. She is not complaining of any chest pains or shortness. Having intermittent headache and states the tylenol is helping. Her CBC is unremarkable; BMP reveals sodium 142, potassium 4.4, BUN 7.9, creatinine 0.8. She has been afebrile, heart rate 90 normal sinus rhythm, blood pressure marginal 79/49 she is not having any symptoms no dizziness or lighheadness. REVIEW OF SYSTEMS: All other systems are negative except those mentioned in the HPI PHYSICAL EXAMINATION: GENERAL: The patient is alert and oriented x3, not in any acute distress. Well developed, well nourished. HEENT: Pupils are round and equally reacting to light. EOMI. No scleral icterus. No conjunctival pallor. Normocephalic, atraumatic. No pharyngeal erythema. No thyromegaly. CARDIOVASCULAR: S1 and S2 present. No murmurs, rubs, or gallops. PULMONARY: Chest is clear to auscultation, no wheezing or crackles. ABDOMEN: Soft, nontender, nondistended, normoactive bowel sounds. No palpable organomegaly. MUSCULOSKELETAL: No joint swelling or deformity. EXTREMITIES: No cyanosis, clubbing, or pedal edema. NEUROLOGICAL: Gross neurological examination did not reveal any focal deficits. SKIN: No rashes. Assessment and Plan -Depression suicide attempt: currently evaluated on the psychiatric unit -Overdose on multiple drugs as mentioned above patient was monitored on telemetry for any heart rhythm abnormalities, QT prolongation; and has been cleared by poison control -History of borderline personality -Anxiety/Depression -Hx of asthma stable with no acute exacerbation Marijuana use: Counseling was provided DVT prophylaxis: Early ambulation The impression and plan of care has been dictated by Deyanira Thomas, Nurse Practitioner as directed. Dr. Ja MD I have performed a history and physical examination and medical decision making of this patient, discussed the same with the dictator, and agree with the dictators assessment and plan as written, documented as a scribe. Based on total visit time, I have performed more than 50% of this visit. Past Medical History Past Medical History: Asthma History of Any Multi-Drug Resistant Organisms: None Reported Past Surgical History: No Surgical Hx Reported Past Anesthesia/Blood Transfusion Reactions: No Reported Reaction Smoking Status: Never smoker - Past Family History Mother Family Medical History: Dementia Medications and Allergies Home Medications Medication Instructions Recorded Confirmed Type Ibuprofen [Motrin] 800 mg PO Q8H PRN 12/23/24 12/23/24 History Nausea & Upset Stomach Relief 15 - 30 ml PO DIRECTED PRN 12/23/24 12/23/24 History (Glyverin, Methylparaben, Purified Water) Venlafaxine HCl [Effexor XR] 300 mg PO DAILY 12/23/24 12/23/24 History cloNIDine HCL [Catapres] 0.2 mg PO HS 12/23/24 12/23/24 History traZODone HCL [Desyrel] 100 mg PO HS PRN 12/23/24 12/23/24 History Allergies Allergy/AdvReac Type Severity Reaction Status Date / Time No Known Allergies Allergy Verified 12/22/24 09:44 Physical Exam Vitals: Vital Signs Temp Pulse Resp BP Pulse Ox 12/24/24 08:41 90 79/49 100 12/24/24 08:27 97.4 F L 110 H 67/50 98 12/23/24 20:54 97.8 F 76 16 120/78 99 Intake and Output 12/23/24 12/24/24 12/24/24 22:59 06:59 14:59 Other: Weight 58.287 kg Assessment and Plan Time with Patient: Less than 30
[2024-12-24] MEDS: QUEtiapine 50 MG TAB PO SCH (20:11)
[2024-12-25] MEDS: LORazepam 1 MG TAB PO PRN (01:44)
[2024-12-25] MEDS: BENZOCAINE 20 % GEL 11.9 GM TUBE MM PRN (10:43)
--- NOTE | 2024-12-25 13:00 | P.PN ---
Progress Note - Text Progress Note Date: 12/25/24 Interval History: Patient was seen wandering the hallways and was directable and agreeable to jameson de anda with insurance writer in the office. Patient was seen emotional after seeing her boss who was supportive to her time and need it insisted on her keeping her job when she is discharged from here. She reports poor sleep overnight, states that she initially fell asleep easier however woke up and was unable to fall asleep and thus began talking to her roommate the rest of the night. She states her dad hopkins s been helping her out, talked to her landlord as she has not been able to pay her rent and had an eviction notice that was removed. She states her dad will visit her today and visitation. She has been attending groups. She reports low anxiety. At this time patient denies any suicidal or homicidal ideations, intent or plan. Patient denies any auditory, visual hallucinations and denies any paranoia or delusions. Patient denies any side effects from the medications and has been compliant with meds. Mental Status Exam: General Appearance: Patient appears to be stated age is alert, directable, and cooperative. Behavior: Patient is calmly seated without any agitated behavior. She is intermittently tearful Speech: Patient's speech is fluent and nonpressured. Mood/Affect: Mood is improving mildly, affect is congruent and blunted. Suicidality/Homicidality: Patient denies having any suicidal or homicidal ideation intent or plan. Perceptions: Patient denies any visual hallucinations and denies any auditory hallucinations Though content/process: There is no evidence of any delusional thought content and thought process is linear and goal-directed. Memory and concentration: AOX3, grossly intact for the purposes of this session Judgment and insight: Improving mildly Assessment Major depressive disorder, recurrent, severe Suicide attempt via OD Rule out bipolar disorder, current episode depressed History of borderline personality disorder Plan: -Patient continues to meet criteria for inpatient psychiatric admission for symptom stabilization and safety. Patient has signed adult voluntary form and medication consent and was placed in patient's chart. -Medications: Increase Seroquel to 100 mg at bedtime for insomnia/mood stabilization, continue Effexor XR 225 mg daily for depression/anxiety, BuSpar 5 mg twice daily for anxiety -When necessary Ativan for agitation/aggression. -Labs: WNL -SW on board for discharge planning. Encouraged the patient to participate in milieu. Anticipate discharge back home on Monday
[2024-12-25] MEDS: AMOXICILLIN 500 MG CAP PO SCH (16:23)
[2024-12-25] MEDS: MAG HYDROX/AL HYDROX/SIMETH 355 ML BOTTLE PO PRN (16:24)
[2024-12-25] MEDS: QUEtiapine 100 MG TAB PO SCH (21:54)
[2024-12-26 10:48] VITALS: RESP 16
--- NOTE | 2024-12-26 12:42 | P.PN ---
Progress Note - Text Progress Note Date: 12/26/24 Interval History: Patient was seen sitting in the [place] and was directable and agreeable to speak with typewriter ribbon winder in the office. Patient expressed frustration with the staff related to her mouth pain. Preschool Substitute Teacher did look into patient's mouth and it did appear to be a canker sore patient was encouraged to take Tylenol for the pain. She has been prescribed Orajel and antibiotics for her tooth infection which she finds helpful. She reports sleeping better with staff documenting patient slept throughout the night. She denied any worsening in her anxiety however does have concerns about this once discharged as she will be back into her home environment which usually triggers her anxiety. She was goal oriented today. At this time patient denies any suicidal or homicidal ideations, intent or plan. Patient denies any auditory, visual hallucinations and denies any paranoia or delusions. Patient denies any side effects from the medications and has been compliant with meds. Mental Status Exam: General Appearance: Patient appears to be stated age is alert, directable, and cooperative. Behavior: Patient is calmly seated without any agitated behavior. Speech: Patient's speech is fluent and nonpressured. Mood/Affect: Mood is improving mildly, affect is congruent and blunted. Suicidality/Homicidality: Patient denies having any suicidal or homicidal ideation intent or plan. Perceptions: Patient denies any visual hallucinations and denies any auditory hallucinations Though content/process: There is no evidence of any delusional thought content and thought process is linear and goal-directed. Memory and concentration: AOX3, grossly intact for the purposes of this session Judgment and insight: Improving mildly Assessment Major depressive disorder, recurrent, severe Suicide attempt via OD Rule out bipolar disorder, current episode depressed History of borderline personality disorder Plan: -Patient continues to meet criteria for inpatient psychiatric admission for symptom stabilization and safety. Patient has signed adult voluntary form and medication consent and was placed in patient's chart. -Medications: Increase BuSpar to 5 mg 3 times daily for anxiety, continue Seroquel 100 mg at bedtime for insomnia/mood stabilization, Effexor XR 2025 mg daily for depression/anxiety -When necessary Ativan for agitation/aggression. -Labs: WNL -SW on board for discharge planning. Encouraged the patient to participate in milieu. Anticipate discharge back home tomorrow.
[2024-12-26] MEDS: busPIRone HCl 5 MG TAB PO SCH (16:16)
[2024-12-27 09:31] VITALS: BP 117/75; PULSE 125; TEMP 98.2
--- NOTE | 2024-12-27 12:40 | P.DS ---
Providers Date of admission: 12/23/24 18:02 Expected date of discharge: 12/27/24 Attending physician: Isi Wilder MD Consults: 12/23/24 17:47 Consult Physician Routine Consulting Provider: [facility] Consult Reason/Comments: History and Physical, New Admission Do you want consulting provider notified?: Yes Primary care physician: Froylan Chun, DO - Discharge Diagnosis(es) (1) Major depressive disorder, recurrent episode, severe Status: Acute Priority: High (2) Attempted suicide Status: Acute Priority: High (3) H/O borderline personality disorder Status: Chronic Priority: Medium Hospital Course: Admission HPI: Admission note was completed by telegraphic typewriter operator chief "Patient presented to the hospital with suicide attempt. Patient was seen during consult and the note is as follows, "The patient presented to the hospital with suicide attempt via OD. Patient reportedly took 50 pills of clonidine, trazodone and Effexor and immediately called the suicide hotline. Patient seen and evaluated in her room with sitter at bedside. Patient appeared to minimize her attempt and concerns, stating that she was not thinking clearly due to not sleeping for a week and that she does not think she was attempting suicide. She states immediately regretting taking the pills and that is why she had called the suicide hotline, reportedly took roughly 25 of her pills stating that she was attempting to go to sleep. She reports difficulties paying her rent and having to rely on her parents as the predominant stressors, stating her parents and her have long-term issues. She does live independently and is employed. She describes the attempt as more of an impulsive act, denying any planning of this. She does report sleep and appetite difficulties, anhedonia, feeling helpless, denying any energy changes. She denied any anxiety. She does report a history of questionable manic symptoms however does report a previous diagnosis of borderline that appears to coincide with the symptoms. At this time patient denies any suicidal or homicidal ideations, intent or plan. Patient denies any auditory, visual hallucinations and denies any paranoia or delusions. Patients admits to using cannabis occasionally." Patient seen and evaluated on the unit and was agreeable with speaking to telegraphic typewriter operator chief in office. She states she has high anxiety related to her employment and dealing with her family that appears more stable during this admission. She states her Effexor was recently increased 2 months ago and she has noticed worsening in her anxiety with this increase but overall effective for her depression. She states her PCP has been managing her mental health symptoms, reporting that clonidine was recently added for her sleep however she noticed that this actually worsened her depression. She reports sleep difficulties being the ultimate trigger for her taking the pills. Patient denies any suicidal or homicidal ideations intent or plan. At this time patient denies any auditory or visual hallucinations. " Hospital course: Upon admission to the unit patient was directable and agreeable to commence treatment and signed adult voluntary form.. Patient got along well with other patients on the unit and followed unit protocol. Patient was compliant with the medications and denied any side effects throughout hospital course. Patient was started on Seroquel and this was increased to 100 mg at bedtime for insomnia/mood stabilization, BuSpar increased to 5 mg 3 times daily for anxiety, Effexor XR decreased to 225 mg daily for depression/anxiety. Patient spoke of her stressors and engaged in therapy both group and individual. Patient was also seen by medical team for history and physical exam. She was started on amoxicillin for tooth infection. Throughout the course of the hospitalization patient gradually improved with regards to mood, anxiety, sleep and became more future oriented with improved insight and judgment. On the day of discharge patient denied any suicidal or homicidal ideations intent or plan denied any auditory or visual hallucinations. The patient denied any access to guns or weapons. Patient denied any paranoia and did not endorse any delusions. Patient does not have a significant history of substance abuse and was counseled on abstaining from all substances including alcohol and marijuana. Patient was also counseled on the medications and need for regular compliance and was encouraged to follow-up with their outpatient appointment for mental health and also for primary care. Prior to discharge a family meeting will be arranged by manager social media to answer any questions and ensure safety upon discharge including making sure that guns/weapons are either removed from the home or locked away. Patient to be discharged home alone and will follow-up with [facility]. Mental status exam: General Appearance: Patient appears to be stated age is alert, pleasant, and cooperative. Patient is in no acute distress and has fair hygiene and grooming Behavior: Patient is calmly seated without any agitated behavior. Speech: Patient's speech is fluent and nonpressured. Mood/Affect: Patient reports their mood is "better", affect is congruent and euthymic. Suicidality/Homicidality: Patient denies having any suicidal or homicidal ideation intent or plan. Perceptions: Patient denies any auditory or visual hallucinations. Though content/process: There is no evidence of any delusional thought content and thought process is linear and goal-directed. More future oriented Memory and concentration: AOX3, grossly intact for the purposes of this session. Can spell "WORLD" backwards correctly. Judgment and insight: improved with guarded prognosis Impression: Major depressive disorder, recurrent, severe Suicide attempt via OD Rule out bipolar disorder, current episode depressed History of borderline personality disorder Plan: -Continue with discharge today as patient has improved and stabilized psy chiatrically and is not currently an imminent threat to themself and/or others. -Continue medications: Seroquel 100 mg at bedtime, BuSpar 5 mg 3 times daily, Effexor XR 225 mg daily -Patient was counseled on the need for medication compliance and appropriate follow-up at mental health and also primary care for medical issues. Patient verbalized understanding and agreed. -Social work to help coordinate patients discharge today arrange for and conduct family meeting to ensure safety upon discharge and answer any questions/concerns. also to ensure safe home environment that guns/weapons are either removed from the home or locked away. Social work also to arrange for patients follow up appointments with [facility] for psychiatric care along with follow up with primary care provider. -Patient counseled on abstaining from recreational drugs and marijuana and alcohol. Was informed/educated on the adverse effects on their physical and mental health. Patient verbally agreed and understood. -Patient was instructed to return to the hospital or seek immediate medical care if their psychiatric or medical symptoms do worsen or reoccur. Allergies Allergy/AdvReac Type Severity Reaction Status Date / Time No Known Allergies Allergy Verified 12/22/24 09:44 Vital Signs Temp 98.2 F 12/27/24 09:00 Pulse 125 H 12/27/24 09:00 Resp 16 12/27/24 09:00 BP 117/75 12/27/24 09:00 Pulse Ox 96 12/27/24 09:00 FiO2 Patient Condition at Discharge: Stable Plan - Discharge Summary Discharge Rx Participant: No New Discharge Prescriptions: New Amoxicillin 500 mg PO Q8HR 5 Days #15 cap QUEtiapine [SEROquel] 100 mg PO HS 15 Days #15 tab busPIRone HCl [Buspar] 5 mg PO TID 15 Days #45 tab Venlafaxine HCl ER [Effexor XR] 225 mg PO DAILY 15 Days #45 cap Discontinued traZODone HCL [Desyrel] 100 mg PO HS PRN PRN Reason: SLEEP Ibuprofen [Motrin] 800 mg PO Q8H PRN PRN Reason: Pain cloNIDine HCL [Catapres] 0.2 mg PO HS Venlafaxine HCl [Effexor XR] 300 mg PO DAILY No Action Nausea & Upset Stomach Relief (Glyverin, Methylparaben, Purified Water) 15 - 30 ml PO DIRECTED PRN PRN Reason: NAUSEA/GI UPSET Discharge Medication List Nausea & Upset Stomach Relief (Glyverin, Methylparaben, Purified Water) 15 - 30 ml PO DIRECTED PRN 12/23/24 [History] Amoxicillin 500 mg PO Q8HR 5 Days #15 cap 12/27/24 [Rx] QUEtiapine [SEROquel] 100 mg PO HS 15 Days #15 tab 12/27/24 [Rx] Venlafaxine HCl ER [Effexor XR] 225 mg PO DAILY 15 Days #45 cap 12/27/24 [Rx] busPIRone HCl [Buspar] 5 mg PO TID 15 Days #45 tab 12/27/24 [Rx] Follow up Appointment(s)/Referral(s): [facility] [Outside] - 12/31/24 9:30 am (INTAKE on 12/31/2024 @ [facility] 9:30 am zach Lynn) [facility] [NON-STAFF] - 1 Week Patient Instructions/Handouts: Generalized Anxiety Disorder (GEN) Activity/Diet/Wound Care/Special Instructions: Avoid the use of street drugs and alcohol. Take all medications as prescribed. When you are in need of refills on your medications, please contact your medical provider and/or outpatient psychiatrist/provider to have this done. Please go to your scheduled outpatient appointment for aftercare treatment. If symptoms return or become worse, call the crisis line at and/or go to the nearest emergency room for evaluation. National Suicide Hotline [facility] confidentiality statement: "The information contained in this communication, including attachments, is confidential, may be privileged, and is intended only for the use of the named recipient(s). Unauthorized use, disclosure, forwarding or copying is strictly prohibited and may be unlawful. If you have received this communication in error, please notify me IMMEDIATELY at the phone number or pager listed above. Discharge Disposition: HOME SELF-CARE
== END 2024-12-27 10:25 | disposition home or self-care (01) | DRG 817 ==
LOC: 3MHU 18:02
PROVIDERS: ADMIT Psychiatry & Neurology Psychiatry; ATTEND Psychiatry & Neurology Psychiatry
DX: T43.212A Poisoning by selective serotonin and norepinephrine reuptake inhibitors, intentional self-harm, initial encounter (principal); F33.2 Major depressive disorder, recurrent severe without psychotic features; J45.909 Unspecified asthma, uncomplicated; F60.3 Borderline personality disorder; F41.9 Anxiety disorder, unspecified; R45.87 Impulsiveness; G47.00 Insomnia, unspecified; K12.0 Recurrent oral aphthae; K04.7 Periapical abscess without sinus; Z79.899 Other long term (current) drug therapy; Z81.8 Family history of other mental and behavioral disorders
CPT/HCPCS: 80061; 80076; 83036; 84443

== ENCOUNTER 2025-01-10 18:08 | Emergency (ER) | payer OTHER ==
--- NOTE | 2025-01-10 18:46 | ED ---
General Adult HPI - General Chief complaint: GI Bleed Stated complaint: Vaginal Bleeding Time Seen by Provider: 01/10/25 18:25 Source: patient Mode of arrival: ambulatory Limitations: no limitations - History of Present Illness Initial comments: This patient is a 19-year-old woman who was directed here from an urgent care to have further evaluation for GI bleeding and abdominal pain tenderness. The patient states that over the past approximately 1 month she has been having episodes of bright red blood when she has bowel movement. The patient does bring pictures that show that there is bright red blood in the water of the commode. She is not having any clots or blood mixed into the stool. The patient states that she was told she has a an anal fissure. The patient is concerned because her mother has history of colitis. The patient went to urgent care today when she had some lower abdominal cramping that she states was similar to a "period cramp," and that when the practitioner at the urgent care checked her abdomen she was tender in the right lower quadrant. The patient states that the crampy sensation has improved now. She has not noted fever or chills. No change in urination. No nausea or vomiting. Onset/Timin -: month(s) Location: abdomen Severity scale (1-10): 0 Quality: other (Cramping) Consistency: now resolved Improves with: none Worsens with: none Associated Symptoms: other Treatments Prior to Arrival: none - Related Data Home Medications Medication Instructions Recorded Confirmed Nausea & Upset Stomach Relief 15 - 30 ml PO DIRECTED PRN 12/23/24 12/23/24 (Glyverin, Methylparaben, Purified Water) Previous Rx's Medication Instructions Recorded Amoxicillin 500 mg PO Q8HR 5 Days #15 cap 12/27/24 QUEtiapine [SEROquel] 100 mg PO HS 15 Days #15 tab 12/27/24 Venlafaxine HCl ER [Effexor XR] 225 mg PO DAILY 15 Days #45 cap 12/27/24 busPIRone HCl [Buspar] 5 mg PO TID 15 Days #45 tab 12/27/24 Allergies Allergy/AdvReac Type Severity Reaction Status Date / Time No Known Allergies Allergy Verified 01/10/25 18:16 Review of Systems ROS Statement: Those systems with pertinent positive or pertinent negative responses have been documented in the HPI. ROS Other: All systems not noted in ROS Statement are negative. Constitutional: Denies: fever, chills Respiratory: Denies: cough, dyspnea Cardiovascular: Denies: chest pain, palpitations, edema Gastrointestinal: Reports: as per HPI, abdominal pain, hematochezia. Denies: nausea, vomiting, diarrhea, constipation, hematemesis, melena Genitourinary: Denies: dysuria, hematuria, abnormal menses Musculoskeletal: Denies: back pain Skin: Denies: rash Neurological: Denies: headache, weakness Past Medical History Past Medical History: Asthma History of Any Multi-Drug Resistant Organisms: None Reported Past Surgical History: No Surgical Hx Reported Past Anesthesia/Blood Transfusion Reactions: No Reported Reaction Past Psychological History: Anxiety, Bipolar, Depression Smoking Status: Never smoker Past Alcohol Use History: None Reported Past Drug Use History: Marijuana - Past Family History Mother Family Medical History: Dementia General Exam Limitations: no limitations General appearance: alert, in no apparent distress Head exam: Present: atraumatic, normocephalic Eye exam: Present: normal appearance. Absent: scleral icterus, conjunctival injection ENT exam: Present: normal oropharynx Neck exam: Present: normal inspection Respiratory exam: Present: normal lung sounds bilaterally. Absent: respiratory distress, wheezes, rales, rhonchi, stridor, accessory muscle use Cardiovascular Exam: Present: regular rate, normal rhythm, normal heart sounds. Absent: systolic murmur, diastolic murmur, rubs, gallop GI/Abdominal exam: Present: soft. Absent: distended, tenderness, guarding, rebound, rigid, mass Extremities exam: Present: normal inspection, normal capillary refill. Absent: pedal edema, calf tenderness Back exam: Present: normal inspection. Absent: CVA tenderness (R), CVA tenderness (L) Neurological exam: Present: alert Skin exam: Present: warm, dry, intact, normal color. Absent: rash Course Vital Signs 01/10/25 01/10/25 01/10/25 18:13 21:47 21:49 Temperature 98.5 F 98.3 F Pulse Rate 78 102 H 93 Respiratory 15 18 18 Rate Blood Pressure 140/98 123/96 O2 Sat by Pulse 99 100 99 Oximetry Medical Decision Making - Medical Decision Making Was pt. sent in by a medical professional or institution (, PA, AUTO ADJUDICATION SPECIALIST, urgent care, hospital, or fpc...) When possible be specific @ -[No] Did you speak to anyone other than the patient for history (EMS, parent, family, police, friend...)? What history was obtained from this source @ -[No] Did you review nursing and triage notes (agree or disagree)? Why? @ -[I reviewed and agree with nursing and triage notes] Were old charts reviewed (outside hosp., previous admission, EMS record, old EKG, old radiological studies, urgent care reports/EKG's, fpc records)? Report findings @ -[No old charts were reviewed] Differential Diagnosis (chest pain, altered mental status, abdominal pain women, abdominal pain men, vaginal bleeding, weakness, fever, dyspnea, syncope, headache, dizziness, GI bleed, back pain, seizure, CVA, palpatations, mental health, musculoskeletal)? @ -[Differential GI Bleed: Esophageal varices, aortoenteric fistula, Darlin-Renner, gastritis, peptic ulcer disease, diverticulosis, inflammatory bowel disease, hemorrhoids, fissure, colitis, malignancy, Meckel's diverticulum, this is not meant to be an all- inclusive list. EKG interpreted by me (3pts min.). @ -[As above] X-rays interpreted by me (1pt min.). @ -[None done] CT interpreted by me (1pt min.). @ -[None done] U/S interpreted by me (1pt. min.). @ -[None done] What testing was considered but not performed or refused? (CT, X-rays, U/S, labs)? Why? @ -[None] What meds were considered but not given or refused? Why? @ -[None] Did you discuss the management of the patient with other professionals (shyanne arciniega i.e. , PA, AUTO ADJUDICATION SPECIALIST, lab, RT, psych nurse, director of social work, search engine marketing strategist, teacher, correctional program officer, family preservation caseworker)? Give summary @ -[No] Was smoking cessation discussed for >3mins.? @ -[No] Was critical care preformed (if so, how long)? @ -[No] Were there social determinants of health that impacted care today? How? (Homelessness, low income, unemployed, alcoholism, drug addiction, transportation, low edu. Level, literacy, decrease access to med. care, prison, rehab)? @ -[No] Was there de-escalation of care discussed even if they declined (Discuss DNR or withdrawal of care, Hospice)? DNR status @ -[No] What co-morbidities impacted this encounter? (DM, HTN, Smoking, COPD, CAD, Cancer, CVA, ARF, Chemo, Hep., AIDS, mental health diagnosis, sleep apnea, morbid obesity)? @ -[None] Was patient admitted / discharged? Hospital course, mention meds given and route, prescriptions, significant lab abnormalities, going to OR and other pertinent info. @ -[This patient is a 19-year-old woman having episodes of rectal bleeding. The exam and history consistent with small amount of bleeding due to anal fissure. The patient's labs normal and hemodynamic picture normal. Discussed appropriate further care and follow-up as well as return parameters. Undiagnosed new problem with uncertain prognosis? @ -[No] Drug Therapy requiring intensive monitoring for toxicity (Heparin, Nitro, Insulin, Cardizem)? @ -[No] Were any procedures done? @ -[No] Diagnosis/symptom? @ -[Acute GI bleeding Acute anal fissure Acute, or Chronic, or Acute on Chronic? @ -[Acute Uncomplicated (without systemic symptoms) or Complicated (systemic symptoms)? @ -[Uncomplicated Side effects of treatment? @ -[No] Exacerbation, Progression, or Severe Exacerbation? @ -[No] Poses a threat to life or bodily function? How? (Chest pain, USA, IA, pneumonia, PE, COPD, DKA, ARF, appy, cholecystitis, CVA, Diverticulitis, Homicidal, Suicidal, threat to staff... and all critical care pts) @ -[No] All treatments are based on ideal body weight as in ED triage - Lab Data Result diagrams: 01/10/25 19:30 01/10/25 20:28 Lab Results 01/10/25 01/10/25 01/10/25 Range/Units 19:30 20:28 20:28 WBC 9.95 (4.50-10.00) 10*3/uL RBC 5.11 (4.10-5.20) 10*6/uL Hgb 14.6 (12.0-15.0) g/dL Hct 45.0 (37.2-46.3) % MCV 88.1 (80.0-97.0) fL MCH 28.6 (27.0-32.0) pg MCHC 32.4 (32.0-37.0) g/dL Plt Count 327 (140-440) 10*3/uL MPV 9.6 (9.5-12.2) fL Immature Gran % (Auto) 0.3 % Neutrophils % 61.1 % Lymphocytes % 30.6 % Monocytes % 6.0 % Eosinophils % 1.5 % Basophils % 0.5 % Immature Gran # 0.03 (0.00-0.04) 10*3/uL Neutrophils # 6.08 (1.80-7.70) 10*3/uL Lymphocytes # 3.04 (0.90-5.00) 10*3/uL Monocytes # 0.60 (0.20-1.00) 10*3/uL Eosinophils # 0.15 (0.04-0.35) 10*3/uL Basophils # 0.05 (0.00-0.10) 10*3/uL Sodium 139 (137-145) mmol/L Potassium 4.7 (3.5-5.1) mmol/L Chloride 104 (98-107) mmol/L Carbon Dioxide 26 (22-30) mmol/L Anion Gap 9 mmol/L BUN 15 (7-17) mg/dL Creatinine 0.61 (0.52-1.04) mg/dL Est GFR (CKD-EPI)AfAm >90 (>60 ml/min/1.73 sqM) Est GFR (CKD-EPI)NonAf >90 (>60 ml/min/1.73 sqM) Glucose 74 (74-99) mg/dL Calcium 9.7 (8.4-10.2) mg/dL Total Bilirubin 0.7 (0.2-1.3) mg/dL AST 49 H (14-36) U/L ALT 32 (4-34) U/L Alkaline Phosphatase 83 (38-126) U/L C-Reactive Protein <0.5 (<1.0) mg/dL Total Protein 8.1 (6.3-8.2) g/dL Albumin 4.9 (3.5-5.0) g/dL Urine HCG, Qual (Not Detectd) Stool Occult Blood Positive H (Negative) 05/23/25 Range/Units 20:50 WBC (4.50-10.00) 10*3/uL RBC (4.10-5.20) 10*6/uL Hgb (12.0-15.0) g/dL Hct (37.2-46.3) % MCV (80.0-97.0) fL MCH (27.0-32.0) pg MCHC (32.0-37.0) g/dL Plt Count (140-440) 10*3/uL MPV (9.5-12.2) fL Immature Gran % (Auto) % Neutrophils % % Lymphocytes % % Monocytes % % Eosinophils % % Basophils % % Immature Gran # (0.00-0.04) 10*3/uL Neutrophils # (1.80-7.70) 10*3/uL Lymphocytes # (0.90-5.00) 10*3/uL Monocytes # (0.20-1.00) 10*3/uL Eosinophils # (0.04-0.35) 10*3/uL Basophils # (0.00-0.10) 10*3/uL Sodium (137-145) mmol/L Potassium (3.5-5.1) mmol/L Chloride (98-107) mmol/L Carbon Dioxide (22-30) mmol/L Anion Gap mmol/L BUN (7-17) mg/dL Creatinine (0.52-1.04) mg/dL Est GFR (CKD-EPI)AfAm (>60 ml/min/1.73 sqM) Est GFR (CKD-EPI)NonAf (>60 ml/min/1.73 sqM) Glucose (74-99) mg/dL Calcium (8.4-10.2) mg/dL Total Bilirubin (0.2-1.3) mg/dL AST (14-36) U/L ALT (4-34) U/L Alkaline Phosphatase (38-126) U/L C-Reactive Protein (<1.0) mg/dL Total Protein (6.3-8.2) g/dL Albumin (3.5-5.0) g/dL Urine HCG, Qual Not Detected (Not Detectd) Stool Occult Blood (Negative) Disposition Clinical Impression: Rectal bleeding, Anal fissure Disposition: HOME SELF-CARE Condition: Good Instructions (If sedation given, give patient instructions): Gastrointestinal Bleeding (ED), Anal Fissure (ED) Is patient prescribed a controlled substance at d/c from ED?: No Referrals: Froylan Chun DO [Primary Care Provider] - 1-2 days
[2025-01-10 19:39] LABS: Basophils # (A) 0.05 10*3/uL (0.00-0.10); Basophils % (A) 0.5 %; Eosinophils # (A) 0.15 10*3/uL (0.04-0.35); Eosinophils % (A) 1.5 %; HGB 14.6 g/dL (12.0-15.0); Lymphocytes # (A) 3.04 10*3/uL (0.90-5.00); Lymphocytes % (A) 30.6 %; MCH 28.6 pg (27.0-32.0); MCHC 32.4 g/dL (32.0-37.0); MCV 88.1 fL (80.0-97.0); Mean Platelet Volume 9.6 fL (9.5-12.2); Neutrophils # (A) 6.08 10*3/uL (1.80-7.70); Neutrophils % (A) 61.1 %; Platelet Count 327 10*3/uL (140-440); RBC 5.11 10*6/uL (4.10-5.20); RDW 14.3 % (11.5-14.5); WBC 9.95 10*3/uL (4.50-10.00)
[2025-01-10 20:54] LABS: ALT 32 U/L (4-34); AST 49 U/L (14-36); African American GFR (CKD) >90 (>60 ml/min/1.73 sqM); Albumin 4.9 g/dL (3.5-5.0); Anion Gap 9 mmol/L; Blood Urea Nitrogen 15 mg/dL (7-17); C Reactive Protein <0.5 mg/dL (<1.0); Calcium 9.7 mg/dL (8.4-10.2); Carbon Dioxide 26 mmol/L (22-30); Chloride 104 mmol/L (98-107); Glucose 74 mg/dL (74-99); Non-African American GFR(CKD) >90 (>60 ml/min/1.73 sqM); Potassium 4.7 mmol/L (3.5-5.1); Sodium 139 mmol/L (137-145); Total Bilirubin 0.7 mg/dL (0.2-1.3); Total Protein 8.1 g/dL (6.3-8.2)
[2025-01-10 20:55] LABS: Alkaline Phosphatase 83 U/L (38-126)
[2025-01-10 21:48] VITALS: BP 123/96; RESP 18
[2025-01-10 22:01] VITALS: PULSE 93; TEMP 98.3
== END 2025-01-10 21:49 | disposition home or self-care (01) ==
LOC: EC 18:08
DX: K60.2 Anal fissure, unspecified (principal)
CPT/HCPCS: 36415; 80053; 81025; 82272; 85025; 86140; 99284